=== PATIENT | male | born 1955 | race Caucasian/White ===

== ENCOUNTER 2019-11-29 00:12 | Outpatient (CLI) | payer BC, SELFPAY ==
[2019-11-29 17:37] LABS: SARS-CoV-2 RNA PCR Negative
== END 2019-11-29 00:13 | disposition home or self-care (01) ==
LOC: ANHCOVIDDT 00:13
PROVIDERS: PCP Family Medicine; Visit Provider Internal Medicine Gastroenterology
DX: Z01.812 Encounter for preprocedural laboratory examination (principal); Z20.828 Contact with and (suspected) exposure to other viral communicable diseases
CPT/HCPCS: 87635; C9803; U0003

== ENCOUNTER 2019-12-02 00:58 | Day surgery (SDC) | payer BC, SELFPAY ==
[2019-11-25 14:41] VITALS: BMI 31.6
[2019-12-02 06:36] VITALS: BP 144/85; PULSE 73; RESP 22; TEMP 36.3; O2SAT 98
[2019-12-02] MEDS: LACTATED RINGERS 1,000 ML 150 ML IV CONT (06:44)
--- NOTE | 2019-12-02 06:54 | WPDANESEPPF ---
Anes - Initial Pre Proc Eval Procedure: Operation Date: 12/02/19 07:30 Proposed Procedures p Esophagogastroduodenoscopy - Carlos Garcia MD Date/Time: 12/02/19 06:54 Surgeon: Carlos Garcia MD Pre Op Diagnosis: Dysphagia and GERD Patient Data Age: 64 Gender: M Height: 5 ft 11 in Weight: 103 kg Last Vital Signs Temp 36.3 C L 12/02/19 06:36 Pulse 73 12/02/19 06:36 Resp 22 H 12/02/19 06:36 BP 144/85 H 12/02/19 06:36 Pulse Ox 98 12/02/19 06:36 Allergies Allergy/AdvReac Type Severity Reaction Status Date / Time ibuprofen Allergy Severe HIVES Verified 12/02/19 06:30 KARLOS Inhibitors Allergy Unknown Hives Verified 12/02/19 06:30 Home Medications Medication Instructions Recorded Confirmed Type cetirizine 5 mg-pseudoephedrine ER 1 tablet PO Q12H 12/13/18 11/25/19 History 120 mg tablet,extended release,12hr escitalopram oxalate 20 mg tablet 20 mg PO DAILY #30 tablet 12/13/18 11/25/19 Rx omeprazole 40 mg capsule,delayed 40 mg PO QAM #30 cap 09/05/19 11/25/19 Rx release amlodipine 5 mg tablet 5 mg PO DAILY #30 tablet 11/19/19 11/25/19 Rx atorvastatin 40 mg tablet 40 mg PO DAILY #90 tablet 11/25/19 11/25/19 Rx clindamycin phosphate 1 applic TOPICAL DAILY 11/25/19 11/25/19 History clobetasol See Rx Instructions .ROUTE 11/25/19 11/25/19 History .COMPLEX PRN doxycycline monohydrate 40 mg PO DAILY PRN 11/25/19 11/25/19 History montelukast 10 mg PO DAILY PRN 11/25/19 11/25/19 History olmesartan 40 mg PO DAILY 11/25/19 11/25/19 History zolpidem 10 mg tablet 10 mg PO .qhs #30 tablet 11/25/19 11/25/19 Rx Patient hx anesthesia problems: none Family hx anesthesia problems: none PMFSH Past Medical History Medical History (Updated 10/29/19 @ 13:48 by Carlos Garcia MD) Dysphagia Surgical History Surgical History History of cervical spinal surgery History of meniscectomy of left knee S/P rotator cuff repair bilateral Status post carpal tunnel release Ulnar nerve entrapment at elbow Family History Family History Father Hypertension Family history of cardiovascular disease Mother Hypertension Sibling Family history of cardiovascular disease Family history of malignant neoplasm of breast in first degree relative Social History Social History Smoking status: Never smoker Second hand tobacco smoke exposure: No Alcohol intake: current Drinks per week: 2 Alcohol use details: BEERS Substance use: never Substance use type: does not use Living arrangements: with family Gender identity (if verbalized by the patient): Male Spiritual care concerns: No Anes - Eval Final PreProcedure Day of Procedure 12/02/19 06:54 Patient weight: obese Heart: regular rate and rhythm Lungs: clear to auscultation Airway: Mallampati scale class II and special considerations poor extension Neurological: alert and oriented Last oral intake: >/= 8 hours ASA classification: III Emergent: no Anesthetic plan: proceed Anesthesia type and monitoring: general GIVS and standard monitoring Informed Consent: The patient's anesthetic plan and its attendant risks and benefits were discussed with the patient/family/POA. Questions were solicited and answers provided to the satisfaction of the patient/family/POA.
[2019-12-02 07:03] VITALS: BMI 31.1
--- NOTE | 2019-12-02 07:51 | PM.HPGS ---
History of Present Illness History of Present Illness Consent: Risks, benefits, and alternatives have been discussed and questions answered. Patient agrees to proceed with procedure. Chief complaint: Dysphagia and GERD Narrative: Devaughn Simmons is a 64 year old male with gerd and dysphagia Review of Systems Constitutional: Constitutional: Denies headache(s) and Denies weakness Eyes: Eyes: Denies blurry vision ENT: Reports Normal hearing present, Denies headache(s) and Denies neck pain Cardiovascular: Cardiovascular: Denies chest pain and Denies dyspnea Respiratory: Respiratory: Denies dyspnea Gastrointestinal: Gastrointestinal: Reports no additional gastrointestinal complaints Genitourinary: Genitourinary: Denies dysuria Musculoskeletal: Musculoskeletal: Denies neck pain Integumentary/Breasts: Skin/Breast: Denies dry skin Neurologic: Reports Normal hearing present, Denies headache(s) and Denies weakness Psychiatric: Psychiatric: Denies anxiety Endocrine: Endocrine: Denies change in body appearance Hematologic/Lymphatic: Hematologic/Lymphatic: Denies easy bleeding Allergic/Immunologic: Allergic/Immunologic: Denies urticaria [facility] Past Medical History Medical History (Updated 10/29/19 @ 13:48 by Carlos Garcia MD) Dysphagia Surgical History Surgical History History of cervical spinal surgery History of meniscectomy of left knee S/P rotator cuff repair bilateral Status post carpal tunnel release Ulnar nerve entrapment at elbow Family History Family History Father Hypertension Family history of cardiovascular disease Mother Hypertension Sibling Family history of cardiovascular disease Family history of malignant neoplasm of breast in first degree relative Social History Social History Smoking status: Never smoker Second hand tobacco smoke exposure: No Alcohol intake: current Drinks per week: 2 Alcohol use details: BEERS Substance use: never Substance use type: does not use Living arrangements: with family Gender identity (if verbalized by the patient): Male Spiritual care concerns: No Meds Home Medications and Allergies Home Medications Medication Instructions Recorded Confirmed Type cetirizine 5 mg-pseudoephedrine ER 1 tablet PO Q12H 12/13/18 11/25/19 History 120 mg tablet,extended release,12hr escitalopram oxalate 20 mg tablet 20 mg PO DAILY #30 tablet 12/13/18 11/25/19 Rx omeprazole 40 mg capsule,delayed 40 mg PO QAM #30 cap 09/05/19 11/25/19 Rx release amlodipine 5 mg tablet 5 mg PO DAILY #30 tablet 11/19/19 11/25/19 Rx atorvastatin 40 mg tablet 40 mg PO DAILY #90 tablet 11/25/19 11/25/19 Rx clindamycin phosphate 1 applic TOPICAL DAILY 11/25/19 11/25/19 History clobetasol See Rx Instructions .ROUTE 11/25/19 11/25/19 History .COMPLEX PRN doxycycline monohydrate 40 mg PO DAILY PRN 11/25/19 11/25/19 History montelukast 10 mg PO DAILY PRN 11/25/19 11/25/19 History olmesartan 40 mg PO DAILY 11/25/19 11/25/19 History zolpidem 10 mg tablet 10 mg PO .qhs #30 tablet 11/25/19 11/25/19 Rx Allergies Allergy/AdvReac Type Severity Reaction Status Date / Time ibuprofen Allergy Severe HIVES Verified 12/02/19 06:30 KARLOS Inhibitors Allergy Unknown Hives Verified 12/02/19 06:30 Vital Signs Vital Signs - 24 hr 12/02/19 06:36 Temperature 97.4 F L Pulse Rate 73 Respiratory Rate 22 H Blood Pressure 144/85 H Pulse Oximetry 98 Exam Const: General: comfortable and no acute distress HENMT: General nose exam: Normal nares present Eyes: General: appearance normal, both eyes and all related structures Neck: Neck: no JVD Resp: Auscultation: clear to auscultation bilaterally Cardio: Rate: regular rate Rhythm: regular rhythm GI: Inspection: non-distended GI Palp: Yes
[2019-12-02 08:00] VITALS: BP 123/90; PULSE 63; RESP 13; O2SAT 94
[2019-12-02 08:10] VITALS: BP 131/91; PULSE 63; RESP 13; O2SAT 98
[2019-12-02 08:20] VITALS: BP 132/85; PULSE 62; RESP 18; O2SAT 97
== END 2019-12-02 08:36 | disposition home or self-care (01) ==
PROVIDERS: PCP Family Medicine; Visit Provider Internal Medicine Gastroenterology
PROC: 0DJ08ZZ Inspection of Upper Intestinal Tract, Via Natural or Artificial Opening Endoscopic (ICD-10-PCS; CPT 43235; principal; 2019-12-02 07:30)
DX: K22.2 Esophageal obstruction (principal); K44.9 Diaphragmatic hernia without obstruction or gangrene; K29.70 Gastritis, unspecified, without bleeding; K21.9 Gastro-esophageal reflux disease without esophagitis; E66.9 Obesity, unspecified; Z68.31 Body mass index [BMI] 31.0-31.9, adult
CPT/HCPCS: 43249; 43239; 88305; C1726; J2704; J7120

== ENCOUNTER 2019-12-12 12:36 | Outpatient (NON) | payer BC, SELFPAY ==
[2019-12-12 22:06] LABS: SARS-CoV-2 RNA PCR Negative
== END 2019-12-12 12:37 ==
LOC: ANHCOVIDDT 12:37
PROVIDERS: PCP Family Medicine; Visit Provider Family Medicine
DX: Z20.828 Contact with and (suspected) exposure to other viral communicable diseases (principal); R43.2 Parageusia; R52 Pain, unspecified
CPT/HCPCS: 87635; C9803; U0003

== ENCOUNTER 2020-02-19 08:31 | Outpatient (CLI) | payer BC, SELFPAY ==
--- NOTE | ~2020-02-19 | XR_ITS ---
XR hand RT min 3V DATE: 02/19/2020 09:45 INDICATION: Right hand pain. Osteoarthritis. No injury. TECHNIQUE: 3 views of right hand COMPARISON: None FINDINGS: There is joint space narrowing and spurring at the first and second metacarpophalangeal clementina nts and multiple interphalangeal joints, consistent with osteoarthritis. No fracture or dislocation, periosteal reaction or bone destruction. IMPRESSION: Polyarticular osteoarthritis Reviewed, dictated and finalized at location B. BLADDER MAKER
--- NOTE | 2020-02-19 12:00 | NEURO_ITS ---
Impression: # Complains of pain and numbness of right hand. # Right Carpal Tunnel Syndrome. # Right ulnar neuropathy across the elbow. # Normal needle/EMG exam. # Clinical correlation recommended. Nerve Conduction Studies Anti Sensory Summary Table Stim Site NR Peak (ms) P-T Amp (?V) Site1 Site2 Delta-P (ms) Dist (cm) Kenneth (m/s) Right Median Anti Sensory (2-3nd Digit) Wrist 3.9 19.9 Wrist 2-3nd Digit 3.9 14.0 36 Wrist 3.7 17.6 Wrist 2-3nd Digit 3.9 14.0 36 Right Radial Anti Sensory (Base 1st Digit) Wrist 2.8 14.3 Wrist Base 1st Digit 2.8 0.0 Right Ulnar Anti Sensory (5th Digit) Wrist 2.9 32.1 Wrist 5th Digit 2.9 14.0 48 Motor Summary Table Stim Site NR Onset (ms) O-P Amp (mV) Site1 Site2 Delta-0 (ms) Dist (cm) Kenneth (m/s) Right Median Motor (Abd Poll Brev) Wrist 3.7 4.3 Elbow Wrist 5.8 32.0 55 Elbow 9.5 4.0 Right Ulnar Motor (Abd Dig Minimi) Wrist 2.7 6.2 A Elbow Wrist 6.1 31.0 51 A Elbow 8.8 4.6 B Elbow Wrist 3.9 23.0 59 B Elbow 6.6 4.5 F Wave Studies NR F-Lat (ms) L-R F-Lat (ms) Right Median (Mrkrs) (Abd Poll Brev) 30.92 Right Ulnar (Mrkrs) (Abd Dig Min) 31.33 EMG Side Muscle Nerve Root Ins Act Fibs Amp Dur Recrt Comment Right 1stDorInt Ulnar C8-T1 Nml Nml Nml Nml Nml Right Ext Indicis Radial (Post Int) C7-8 Nml Nml Nml Nml Nml Right Ext Digitorum Radial (Post Int) C7-8 Nml Nml Nml Nml Nml Right BrachioRad Radial C5-6 Nml Nml Nml Nml Nml Right PronatorTeres Median C6-7 Nml Nml Nml Nml Nml Right Abd Poll Brev Median C8-T1 Nml Nml Nml Nml Nml Right ABD Dig Min Ulnar C8-T1 Nml Nml Nml Nml Nml MTDD
== END 2020-02-19 08:32 | disposition home or self-care (01) ==
LOC: ANHNEURO 08:36
PROVIDERS: PCP Family Medicine; Visit Provider Plastic Surgery
DX: R53.1 Weakness (principal); R25.2 Cramp and spasm; G56.01 Carpal tunnel syndrome, right upper limb; G56.21 Lesion of ulnar nerve, right upper limb; M19.041 Primary osteoarthritis, right hand
CPT/HCPCS: 73130; 95886; 95909

== ENCOUNTER → 2020-03-20 01:03 | Outpatient (CLI) | payer BC, SELFPAY ==
[2020-03-21 00:21] LABS: SARS-CoV-2 RNA PCR Negative
== END ==
PROVIDERS: PCP Family Medicine; Visit Provider Plastic Surgery
DX: Z01.812 Encounter for preprocedural laboratory examination (principal); Z20.822 Contact with and (suspected) exposure to COVID-19
CPT/HCPCS: C9803; U0003; U0005

== ENCOUNTER 2020-03-24 00:23 | Day surgery (SDC) | payer BC, SELFPAY ==
[2020-03-16 14:51] VITALS: BMI 31.8
--- NOTE | 2020-03-23 12:20 | WPDANESEPPF ---
Anes - Initial Pre Proc Eval Procedure: Operation Date: 03/24/20 07:30 Proposed Procedures p Right Open Carpal Tunnel Release - Devaughn Decker MD s Right Ulnar Neuroplasty - Devaughn Decker MD Date/Time: 03/23/20 12:20 Surgeon: Devaughn Decker MD Pre Op Diagnosis: Right Carpal Tunnel Syndrome, Right Cubital Tunnel Patient Data Age: 65 Gender: M Height: 1.8 m Weight: 103.63 kg Allergies Allergy/AdvReac Type Severity Reaction Status Date / Time KARLOS Inhibitors Allergy Severe Hives Verified 03/24/20 06:32 ibuprofen Allergy Severe HIVES Verified 03/16/20 14:46 Home Medications Medication Instructions Recorded Confirmed Type cetirizine 5 mg-pseudoephedrine ER 1 tablet PO Q12H 12/13/18 03/24/20 History 120 mg tablet,extended release,12hr amlodipine 5 mg tablet 5 mg PO DAILY #30 tablet 11/19/19 03/24/20 Rx clobetasol See Rx Instructions .ROUTE 11/25/19 03/24/20 History .COMPLEX PRN doxycycline monohydrate 40 mg PO DAILY PRN 11/25/19 03/16/20 History montelukast 10 mg PO DAILY PRN 11/25/19 03/24/20 History olmesartan 40 mg PO HS 11/25/19 03/24/20 History escitalopram oxalate 20 mg tablet 20 mg PO DAILY #90 tablet 12/22/19 03/24/20 Rx omeprazole 40 mg capsule,delayed 40 mg PO QAM #30 cap 02/04/20 03/24/20 Rx release atorvastatin 40 mg PO HS 03/16/20 03/24/20 History naproxen sodium [Aleve] 220 mg PO Q8H PRN 03/16/20 03/24/20 History zolpidem 10 mg HS 03/16/20 03/24/20 History Patient hx anesthesia problems: none Family hx anesthesia problems: none PMFSH Past Medical History Medical History (Updated 03/23/20 @ 12:21 by Jeremy Lutz MD) Chronic GERD Dysphagia Essential (primary) hypertension JAIME (generalized anxiety disorder) Hiatal hernia HLD (hyperlipidemia) Major depressive disorder, recurrent episode, moderate Mild cognitive impairment Surgical History Surgical History (Updated 12/02/19 @ 09:36 by ARIA Fitzpatrick) History of cervical spinal surgery History of meniscectomy of left knee S/P rotator cuff repair bilateral Status post carpal tunnel release Ulnar nerve entrapment at elbow Family History Family History Father Hypertension Family history of cardiovascular disease Mother Hypertension Sibling Family history of cardiovascular disease Family history of malignant neoplasm of breast in first degree relative Social History Social History Smoking status: Never smoker Second hand tobacco smoke exposure: No Additional smoking assessment comments: DENEIS ALL FORMS OF TOBACCO USE Alcohol intake: current Drinks per week: 2 Substance use: never Substance use type: does not use Living arrangements: with family Gender identity (if verbalized by the patient): Male Spiritual care concerns: No Anes - Eval Final PreProcedure Day of Procedure 03/23/20 12:20 Patient weight: obese Heart: regular rate and rhythm Lungs: clear to auscultation and normal air movement Airway: Mallampati scale class II Neurological: alert and oriented Last oral intake: >/= 8 hours ASA classification: III Emergent: no Anesthetic plan: proceed Anesthesia type and monitoring: general GIVS and LMA Informed Consent: The patient's anesthetic plan and its attendant risks and benefits were discussed with the patient/family/POA. Questions were solicited and answers provided to the satisfaction of the patient/family/POA.
[2020-03-24 06:22] VITALS: BP 138/85; PULSE 77; RESP 20; TEMP 37; O2SAT 97
[2020-03-24] MEDS: LACTATED RINGERS 1,000 ML 30 ML IV CONT (06:40)
--- NOTE | 2020-03-24 07:09 | WPDHPUPDATE1 ---
History and Physical Update Update Date/Time: 03/24/20 07:09 History and Physical has been reviewed, including an updated exam of the patient. There are NO changes in the patient's condition. Risks, benefits, and alternatives have been discussed and questions answered. Patient agrees to proceed with procedure.
[2020-03-24] MEDS: LIDO 1%/EPINEPHRINE 1:100,000 50 ML VIAL INFILTRATE (07:29)
--- NOTE | 2020-03-24 08:03 | PM.OP ---
Procedure Note - Brief Procedure Note - Brief Date of procedure: 03/24/20 Pre-op diagnosis: Right Carpal Tunnel Syndrome, Right Cubital Tunnel Post-op diagnosis: same Procedure performed: R OCTR and R ulnar neuroplasty at the elbow Anesthesia: MAC Surgeon: Devaughn Decker MD Rating Examiner: Becky Estimated blood loss (mL): 2 Tourniquet time (min): 31 Drains: No Packing: No Pathology: none sent Complications: No immediate complications Condition: stable Disposition: same day
[2020-03-24 08:11] VITALS: BP 125/78; PULSE 72; RESP 14; O2SAT 94
--- NOTE | 2020-03-24 08:11 | PM.PROC ---
Procedure Note - Detailed Date of procedure: 03/24/20 Pre-op diagnosis: Right Carpal Tunnel Syndrome, Right Cubital Tunnel Post-op diagnosis: same Procedure performed: Right open carpal tunnel release and right ulnar neuroplasty at the elbow Description of procedure: The right cubital tunnel and right carpal tunnel were marked on the patient in the holding area. He was rolled to the operating room where he was placed supine on the operating table. A time-out was held and confirmed. He was given IV sedation as the right upper extremity was prepped and draped in usual fashion. The markings were made or confirmed and each site and these were locally infiltrated with 1% lidocaine with epinephrine. The tourniquet was inflated to 250 mmHg. Surgery was begun on the carpal tunnel. The incision was made as marked and the dissection was carried bluntly through the subcutaneous tissue and scar from previous surgery. The fascial structures were incised with a 15. Blade and the median nerve was identified. The carpal ligament was divided distally and proximally for complete release it appeared that there may have been tangirnaq ligament proximally that perhaps may have been the source of his current problem. No unusual anatomy was noted. That wound was closed with interrupted 4-0 nylon suture. Attention was turned to the elbow which was flexed and supported on folded towels. The incision was made as marked and dissection was carried through the subcutaneous tissue the past several bridging vascular structures that were generally cauterized a few were preserved. The interval between the medial epicondyle and olecranon with was identified proximal to the medial epicondyle. The tissue over the ulnar nerve was opened and the nerve was visualized. The lysis of this tissue was continued distally and proximally. The primary site of compression appeared to be Rai ligament. The opening was extended about 3 cm into the flexor muscle fascia. The nerve did not sublux. The bleeding points were electrocoagulated the wound was closed with interrupted 3-0 Monocryl sutures at cross hatching dennis. The skin closed with running intradermal 3-0 Monocryl. The usual bandages were applied. He is being discharged home with instructions in wound care and follow-up in a prescription for hydrocodone [id number] [id number]. Surgeon: Devaughn Decker MD
[2020-03-24 08:40] VITALS: BP 130/75; PULSE 68; RESP 16
--- NOTE | 2020-03-24 09:20 | SUR.PHASEII ---
0900; PT AWAKE AND ALERT. DENIES PAIN OR NAUSEA. STATES READY TO GO HOME
== END 2020-03-24 09:30 | disposition home or self-care (01) ==
PROVIDERS: PCP Family Medicine; Visit Provider Plastic Surgery
PROC: (CPT 64721; principal; 2020-03-24 07:30)
PROC: (CPT 64721; 2020-03-24 07:30)
DX: G56.01 Carpal tunnel syndrome, right upper limb (principal); G56.21 Lesion of ulnar nerve, right upper limb; I10 Essential (primary) hypertension; E78.5 Hyperlipidemia, unspecified; K21.9 Gastro-esophageal reflux disease without esophagitis; F41.1 Generalized anxiety disorder; F33.1 Major depressive disorder, recurrent, moderate; G31.84 Mild cognitive impairment of uncertain or unknown etiology; E66.9 Obesity, unspecified; Z68.29 Body mass index [BMI] 29.0-29.9, adult
CPT/HCPCS: 64721; 64718; A9270; J2704; J3010; J7120

== ENCOUNTER 2020-04-15 08:24 | Outpatient (CLI) | payer BC, SELFPAY ==
--- NOTE | 2020-04-15 | ECG_ITS ---
Measurements Intervals [place] Rate: 86 P: 56 [place]: 173 QRS: 29 QRSD: 93 T: 66 QT: 356 QTc: 426 Interpretive Statements SINUS RHYTHM BASELINE WANDER- I, III, V4 NORMAL ECG Electronically Signed On 04-15-2020 9:09:14 SOCIAL SECURITY SPECIALIST by Maverick Oneal D.O.
== END 2020-04-15 08:25 | disposition home or self-care (01) ==
PROVIDERS: PCP Family Medicine; Visit Provider Orthopaedic Surgery
DX: Z01.818 Encounter for other preprocedural examination (principal)
CPT/HCPCS: 93005

== ENCOUNTER 2021-04-01 13:35 | Outpatient (CLI) | payer BC, SELFPAY ==
--- NOTE | ~2021-04-01 | US_ITS ---
EXAMINATION: US renal BI EXAM DATE: 04/01/2021 14:10 INDICATION: N28.1 - Cyst of kidney, acquired TECHNIQUE: Multiple grayscale and Doppler images of the kidneys were obtained (by a technologist who performed the scan) and subsequently reviewed. Comparison is made to prior examination from 02/20/2016. FINDINGS: Right kidney: There is normal contour and echogenicity. It measures 10.5 x 6.0 x 5.8 centimeters. T here are no focal renal lesions identified. There is no hydronephrosis. Left kidney: There is normal contour and echogenicity. It measures 12.4 x 5.9 x 6.1 centimeters. The re is a cyst measuring 2 cm. There is no hydronephrosis. Soft tissues at the bladder base contiguous with the prostate, probably prostate bulging within. IMPRESSION: 1. Left renal cyst. 2. Prostatomegaly. Reviewed, dictated and finalized at location G. ERTY ECONOMIST
== END 2021-04-01 13:36 | disposition home or self-care (01) ==
LOC: ANHIMG 13:38
PROVIDERS: PCP Family Medicine; Visit Provider Physician Assistant
DX: N28.1 Cyst of kidney, acquired (principal); N40.0 Benign prostatic hyperplasia without lower urinary tract symptoms
CPT/HCPCS: 76775

== ENCOUNTER → 2021-07-02 11:11 | Outpatient (CLI) | payer BC, SELFPAY ==
--- NOTE | ~2021-07-02 | XR_ITS ---
EXAMINATION: XR chest 2V DATE: 07/02/2021 11:26 INDICATION: Cough TECHNIQUE: PA and lateral views of the chest were obtained. COMPARISON: Chest radiograph dated 12/24/2018 FINDINGS: Visualized lungs are clear. No focal airspace opacities, pulmonary edema, pleural effusion or pneumot horax. Cardiomediastinal silhouette is normal. Moderate thoracic spondylosis with chronic minimal ant erior wedging of a couple mid thoracic vertebral bodies. IMPRESSION: 1. No acute cardiopulmonary disease. Reviewed, dictated and finalized at location A.
== END ==
PROVIDERS: PCP Family Medicine; Visit Provider Physician Assistant
DX: R05.9 Cough, unspecified (principal)
CPT/HCPCS: 71046

== ENCOUNTER 2021-12-30 08:31 | Outpatient (CLI) | payer BC, SELFPAY ==
--- NOTE | 2021-12-30 08:15 | ECG_ITS ---
Measurements Intervals [place] Rate: 75 P: 48 [place]: 182 QRS: 6 QRSD: 88 T: 50 QT: 341 QTc: 382 Interpretive Statements SINUS RHYTHM BASELINE ARTIFACT- I, II, III, AVR, AVL, AVF NORMAL ECG COMPARED TO ECG 04/15/2020 08:52:01 NO SIGNIFICANT CHANGES Electronically Signed On 12-30-2021 12:23:11 RESEARCH SCHOLAR by Maverick Oneal D.O.
== END 2021-12-30 08:32 | disposition home or self-care (01) ==
LOC: ANHSURGERY 08:35
PROVIDERS: PCP Family Medicine; Visit Provider Surgery
DX: I10 Essential (primary) hypertension (principal); Z01.818 Encounter for other preprocedural examination
CPT/HCPCS: 93005

== ENCOUNTER 2022-01-03 01:29 | Day surgery (SDC) | payer BC, SELFPAY ==
--- NOTE | 2021-12-29 13:27 | PC.NURSE ---
PRE-OP INSTRUCTIONS, PLEASE READ CAREFULLY Report to the Outpatient Waiting Room, entrance under the green pavilion located off [facility], at time _0800_ on date _01/03/22_. Planned Procedure Time: _1000_. Time changes happen often and if your time is changed the preop area will call you the afternoon before. - You and your visitor will be asked to self-screen and do not enter if you have any COVID symptoms. - Only one visitor is requested with a max of two and NO children visitors are allowed at this time. - The patient visitor may be requested to leave or wait in car when not with patient due to distancing restrictions. - A mask is optional within the hospital. Patients may have clear liquids (water, carbonated beverages, clear teas, apple juice) until 3 hours prior to surgery (0700 AM) with a maximum of 20 ounces. - No food from midnight until time of surgery Take the following medications with a SIP of water the morning of surgery: _ESCITALOPRAM_ Medications to discontinue - _NAPROXEN PER DR. RODNEY'S INSTRUCTIONS_ Please no make-up, nail amharic, hairspray, perfume, deodorant, or body powder the day of surgery. No jewelry (including any body piercings) or valuables the day of surgery, leave them at home. Please take a shower or bath the night before, or the morning of, surgery with an antibacterial soap. Wear comfortable, loose fitting clothing. - Jewelry must be removed prior to entering the operating room. Rings and piercings that are not removed may be cut off. - The hospital will not accept responsibility for valuables. - Please leave all valuables, including medications, at home the day of surgery. If you are going home after surgery, a licensed set key driver must drive you home. - NO public transportation without another adult if you receive anesthesia. - We recommend that an adult stay with you for 24 hours following discharge. - We also recommend that you do not drive, make important decision, drink alcoholic beverages, or take any drugs that were not prescribed by your health care provider for at least 24 hours after your discharge time. Follow any additional instructions given to you from your surgeon. HIBICLENS SHOWER AM OF SURGERY If you or anyone in your household have experienced Covid symptoms in the past week, please notify your surgeon or the nurse liaison at the phone number below for possible testing. Telephone instructions given to ___PT and asked if any additional questions and then verbalized understanding. Patient advised to call surgeon office or pre surgery nurse liaison [phone] if any additional questions.
[2022-01-03] VITALS (7 sets, daily range): BP systolic 123–135; BP diastolic 77–86; PULSE 56–84; RESP 12–20; TEMP 36.2–36.3; O2SAT 94–100
[2022-01-03] MEDS: ACETAMINOPHEN 500 MG TABLET 1000 MG PO (08:16)
--- NOTE | 2022-01-03 08:32 | WPDANESEPPF ---
Anes - Initial Pre Proc Eval Procedure: Operation Date: 01/03/22 10:00 Proposed Procedures p Ventral Hernia Repair, Possible Mesh - Steven Matta DO Date/Time: 01/03/22 08:32 Surgeon: Steven Matta DO Pre Op Diagnosis: ventral hernia Patient Data Age: 66 Gender: M Height: 1.79 m Weight: 97.5 kg Allergies Allergy/AdvReac Type Severity Reaction Status Date / Time KARLOS Inhibitors Allergy Severe Hives Verified 01/03/22 08:13 ibuprofen Allergy Severe HIVES Verified 01/03/22 08:13 Home Medications Medication Instructions Recorded Confirmed Type cetirizine 5 mg-pseudoephedrine ER 1 tablet PO Q12H PRN Congestion 12/13/18 01/03/22 History 120 mg tablet,extended release,12hr (Zyrtec-D) naproxen sodium 220 mg tablet 220 mg PO Q12H PRN Pain 03/16/20 01/03/22 History (Aleve) escitalopram oxalate 20 mg tablet 20 mg PO DAILY #90 tabs 06/17/21 01/03/22 Rx atorvastatin 40 mg tablet 40 mg PO HS #90 tabs 07/25/21 01/03/22 Rx amlodipine 5 mg tablet 5 mg PO DAILY #30 tabs 08/22/21 01/03/22 Rx olmesartan 40 mg tablet 40 mg PO DAILY #90 tabs 10/21/21 01/03/22 Rx omeprazole 40 mg capsule,delayed See Rx Instructions .Route 11/08/21 01/03/22 Rx release .COMPLEX #100 caps fluticasone propionate 50 2 spray intranasal BID PRN 12/29/21 01/03/22 History mcg/actuation nasal Congestion spray,suspension (Flonase Allergy Relief) montelukast 10 mg tablet See Rx Instructions .Route 12/29/21 01/03/22 History .COMPLEX PRN Congestion zolpidem 10 mg tablet 10 mg PO HS #30 tabs 12/30/21 01/03/22 Rx Patient hx anesthesia problems: none Family hx anesthesia problems: none Results Review: All pre-operative results and documents have been reviewed as part of the pre-operative evaluation. [facility] Past Medical History Medical History Chronic GERD Dysphagia Essential (primary) hypertension JAIME (generalized anxiety disorder) Hiatal hernia HLD (hyperlipidemia) Major depressive disorder, recurrent episode, moderate Mild cognitive impairment Surgical History Surgical History History of cervical spinal surgery History of meniscectomy of left knee S/P rotator cuff repair bilateral Status post carpal tunnel release Ulnar nerve entrapment at elbow Family History Family History Father Hypertension Family history of cardiovascular disease Mother Hypertension Sibling Family history of cardiovascular disease Family history of malignant neoplasm of breast in first degree relative Social History Social History Smoking status: Never smoker Second hand tobacco smoke exposure: No Additional smoking assessment comments: DENEIS ALL FORMS OF TOBACCO USE Alcohol intake: current Drinks per week: 2 Alcohol use details: BEERS Substance use: never Substance use type: does not use Living arrangements: with family Gender identity (if verbalized by the patient): Male Spiritual care concerns: No Anes - Eval Final PreProcedure Day of Procedure 01/03/22 08:32 Patient weight: obese Heart: regular rate and rhythm Lungs: clear to auscultation and normal air movement Airway: Mallampati scale class II Neurological: alert and oriented Last oral intake: >/= 8 hours ASA classification: III Emergent: no Anesthetic plan: proceed Anesthesia type and monitoring: general LMA Results Review: All pre-operative results and documents have been reviewed as part of the pre-operative evaluation. Informed Consent: The patient's anesthetic plan and its attendant risks and benefits were discussed with the patient/family/POA. Questions were solicited and answers provided to the satisfaction of the patient/family/POA.
[2022-01-03] MEDS: LACTATED RINGERS 1,000 ML 30 ML IV CONT ×2 (08:38→10:55)
--- NOTE | 2022-01-03 09:44 | WPDHPUPDATE1 ---
History and Physical Update Update Date/Time: 01/03/22 09:44 History and Physical has been reviewed, including an updated exam of the patient. There are NO changes in the patient's condition. Risks, benefits, and alternatives have been discussed and questions answered. Patient agrees to proceed with procedure.
[2022-01-03] MEDS: ceFAZolin 2 GM/D5W 50 ML 2 GM/50 ML BAG IVPB (09:59)
[2022-01-03] MEDS: BUPIVACAINE/EPINEPHRINE 0.25% 50 ML VIAL 30 ML INFILTRATE (10:28)
--- NOTE | 2022-01-03 10:41 | W.PM.PROC2 ---
Procedure Note - Detailed Date of Procedure 01/03/22 Pre-op Diagnosis ventral hernia Post-op Diagnosis Same Procedure Performed Ventral hernia repair Surgeon Steven Matta, DO Anesthesia General and Local (0.25% bupivacaine with epinephrine) Indications This is a 66-year-old man who presented with an abdominal bulge that he noticed about 1 month ago while moving rocks. He was noticing some discomfort with this but the bulge was reducible. He was found to have a ventral hernia superior to his umbilicus on exam. Discussions were made with the patient about treatment options and decision was made to proceed with ventral hernia repair with possible mesh. Findings Ventral hernia repair was performed. The patient was found to have a small ventral hernia about 2-3 cm superior to the umbilicus. There was a hernia sac containing preperitoneal fat that was excised and sent to the lab for pathology. The defect was only about 3 mm wide. Decision was made to repair this primarily using 0 Ethibond [id number] sutures. A total of 2 sutures were placed transversely to approximate the fascia without tension. Description of Procedure Procedure as well as risks, benefits, and alternatives were discussed with the patient. Written consent was obtained and placed in chart prior to procedure. Patient was brought back to surgical suite. He was placed supine on operating table. Time-out was done to confirm patient and procedure. He was then intubated by the anesthesia department. His abdomen was prepped and draped in sterile fashion using chlorhexidine prep. 0.5% bupivacaine with epinephrine was infiltrated locally around the hernia defect. A 4 cm transverse incision was made about 3 cm superior to the umbilicus using a 15 blade scalpel. Electrocautery was used for hemostasis and for dissection through the subcutaneous tissue. The hernia sac was identified and carefully dissected free using electrocautery. The hernia sac was dissected all the way down to the level the fascia and then it was transected flush with the level of the fascia with electrocautery. The hernia defect was then measured. This was only measuring about 3 mm wide. No other hernia defects were identified when carefully examining the surrounding fascia. The decision was made to repair this primarily. 0 Ethibond sgjeyl-lq-armuo sutures were placed transversely to approximate fascia and close the hernia defect. A total of 2 sutures were placed to adequately approximate the fascia without tension. The repair was inspected and appeared secure. 0.5% bupivacaine with epinephrine was infiltrated locally around the fascia and subcutaneous space. Tiffanie's fascia was then reapproximated using 3-0 Vicryl simple interrupted sutures. The skin was then approximated using 4-0 Monocryl running subcuticular suture. Exofin glue was then applied on top. The patient was then awakened from anesthesia, extubated, and transferred to recovery. Estimated Blood Loss 5 Pathology Yes (Hernia sac) Complications No immediate complications Condition Stable Disposition Same day [facility] Billing Surgery - Charge Forward: Surgery Billing
== END 2022-01-03 12:25 | disposition home or self-care (01) ==
PROVIDERS: PCP Family Medicine; Visit Provider Surgery
PROC: 0WQF0ZZ Repair Abdominal Wall, Open Approach (ICD-10-PCS; CPT 49560; principal; 2022-01-03 10:00)
DX: K43.9 Ventral hernia without obstruction or gangrene (principal); K21.9 Gastro-esophageal reflux disease without esophagitis; I10 Essential (primary) hypertension; E78.5 Hyperlipidemia, unspecified; F41.1 Generalized anxiety disorder; F33.1 Major depressive disorder, recurrent, moderate; E66.9 Obesity, unspecified; Z68.30 Body mass index [BMI] 30.0-30.9, adult
CPT/HCPCS: 49560; 88302; A9270; J0690; J1100; J2250; J2405; J2704; J2710; J3010; J7120

== ENCOUNTER → 2022-08-22 15:22 | Outpatient (CLI) | payer BC, SELFPAY ==
--- NOTE | ~2022-08-22 | XR_ITS ---
EXAMINATION: XR chest 2V DATE: 08/22/2022 15:55 INDICATION: Cough, unspecified. TECHNIQUE: Frontal and lateral views of the chest were obtained. COMPARISON: Chest 2 views 07/02/2021 FINDINGS: The chest demonstrates clear lungs without pneumonia, pleural effusion, or pneumothorax. Th e heart size is normal. IMPRESSION: 1. No acute cardiopulmonary disease. Reviewed, dictated and finalized at location E.
== END ==
PROVIDERS: PCP Family Medicine; Visit Provider Family Medicine
DX: R05.9 Cough, unspecified (principal)
CPT/HCPCS: 71046

== ENCOUNTER 2023-03-21 14:21 | Outpatient (CLI) | payer BC, SELFPAY ==
[2023-03-21 15:35] LABS: Influenza A QL RT-PCR Positive (Negative); Influenza B QL RT-PCR Negative (Negative); RSV RNA, RT-PCR Negative (Negative); SARS-CoV-2 RNA PCR Negative (Negative)
== END 2023-03-21 14:22 | disposition home or self-care (01) ==
LOC: ANHLAB 14:22
PROVIDERS: PCP Family Medicine; Visit Provider Physician Assistant
DX: R05.9 Cough, unspecified (principal); R50.9 Fever, unspecified; Z20.822 Contact with and (suspected) exposure to COVID-19
CPT/HCPCS: 87637

== ENCOUNTER 2023-08-25 07:50 | Outpatient (CLI) | payer BC, SELFPAY ==
--- NOTE | ~2023-08-25 | MR_ITS ---
MRI of the right hip Clinical history: Pain and weakness Technique: Coronal T1-weighted, T2-weighted, and proton-density fat-sat images, and axial T1-weighted and proton-density fat-sat images were acquired through the pelvis. Coronal T2-weighted images and c oronal, axial, and sagittal proton-density fat-sat images were acquired through the right hip. Findings: There is no fracture or avascular necrosis of either hip. Bone marrow signals the proximal femora and visualized pelvic bones are unremarkable. There is probable mild to moderate diffuse chond romalacia of the right hip joint, and mild diffuse chondromalacia of the left hip joint. There is min imal spurring is bilateral acetabular margins. No significant joint effusion seen of either hip. No d efinite tear of the right acetabular labrum identified. There is high-grade partial tearing at the origin of the right semimembranosus tendon, with marked th ickening and increased signal of the tendon, as well as surrounding soft tissue edema fluid, which pa rtially extends about the right sciatic nerve. There is mild chronic change of the left tension tendo n origins. No other muscle signal abnormality seen. No other soft tissue mass or fluid collection angel dent. IMPRESSION: High-grade partial tearing of the origin of the right semimembranosus tendon, with surrounding soft t issue edema and fluid, as detailed above. Moderate diffuse chondromalacia of the right hip joint, and mild diffuse chondromalacia of the left h ip joint. Reviewed, dictated and finalized at location . IMPRESSION: High-grade partial tearing of the origin of the right semimembranosus tendon, w ith surrounding soft tissue edema and fluid, as detailed above. Moderate diffuse chondromalacia of the right hip joint, and mild diffuse chondr omalacia of the left hip joint.
== END 2023-08-25 07:51 ==
LOC: MICIMG 07:51
PROVIDERS: PCP Family Medicine; Visit Provider Nurse Practitioner Family
DX: M25.551 Pain in right hip (principal); R93.6 Abnormal findings on diagnostic imaging of limbs
CPT/HCPCS: 73721

== ENCOUNTER 2023-09-17 08:43 | Outpatient (CLI) | payer BC, SELFPAY ==
--- NOTE | ~2023-09-17 | XR_ITS ---
EXAMINATION: XR lg joint inject/asp w image DATE: 09/17/2023 09:33 INDICATION: Right hip arthritis. TECHNIQUE: A time-out was performed to verify the patient's name, date of , and procedure to b e performed. The procedure including the risks, benefits, and alternatives was discussed with the pat ient. Risks discussed included bleeding and infection. The patient understood the risks and agreed to proceed. The skin overlying the right hip joint was prepped and draped in usual sterile fashion. A nesthetic was administered with 1% lidocaine subcutaneously. A 22 G needle was advanced under fluoro scopic guidance into the joint. Subsequently, injectate consisting of 2 mL 0.5% bupivacaine and 1 mL 80 mg/mL Depo-Medrol was instilled. The needle was removed and the entry site was cleaned and dress ed. There were no immediate complications. Fluoroscopy exposure time was 0.1 minutes. The total numb er of images was 1. FINDINGS: Real-time fluoroscopy demonstrates the needle in the right hip joint. Patient's pain prior to procedure:09/21. Patient's pain following the procedure: 09/21. IMPRESSION: 1. Fluoroscopy guided right hip joint injection of local anesthetic and steroid . Reviewed, dictated and finalized at location A.
== END 2023-09-17 08:44 | disposition home or self-care (01) ==
PROVIDERS: PCP Family Medicine; Visit Provider Nurse Practitioner Family
DX: M16.0 Bilateral primary osteoarthritis of hip (principal)
CPT/HCPCS: 20610; 77002; J1010

== ENCOUNTER 2024-02-26 08:47 | Outpatient (CLI) | payer BC, SELFPAY ==
--- NOTE | ~2024-02-26 | XR_ITS ---
EXAMINATION: XR hand RT min 3V DATE: 02/26/2024 09:06 INDICATION: Carpal tunnel syndrome, bilateral upper limbs. TECHNIQUE: 3 views of right hand were obtained. COMPARISON: None. FINDINGS: Alignment is normal. No fracture. There is mild osteoarthritis of first carpometacarpal clementina nt. There is osteoarthritis of all of the metacarpophalangeal joints and interphalangeal joints, aidee re at second metacarpophalangeal joint and second and third distal interphalangeal joints and moderat e at first metacarpophalangeal joint, first interphalangeal joint, and fourth and fifth distal interp halangeal joints. IMPRESSION: 1. Polyarticular osteoarthritis. Reviewed, dictated and finalized at location A. RY DRILL OPERATOR HELPER
--- NOTE | ~2024-02-26 | XR_ITS ---
EXAMINATION: XR hand LT min 3V DATE: 02/26/2024 09:05 INDICATION: Bilateral carpal tunnel syndrome TECHNIQUE: Posteroanterior, oblique and lateral views of the left hand were obtained. COMPARISON: None. FINDINGS: No fracture at either hand or wrist. Severe osteoarthritis at the bilateral second metacarpophalangea l joints in each with likely secondary mild palmar subluxation. Bone alignment is otherwise normal at the bilateral hands and wrists. Additional relatively symmetric polyarticular osteoarthritis, modera te severity at the first metacarpophalangeal joint and multiple interphalangeal joints with distal pr edominance. Mild osteoarthritis at the majority the remaining joints in the bilateral hands and wrist s. There multiple scattered subarticular lucencies associated with many of the joints with moderate t o severe joint space narrowing in the bilateral hands and wrists which likely represent degenerative subchondral cystlike changes. A few of which appear more juxta articular with sclerotic margins and o verhanging edges which suggests possibility of chronic erosions the setting of crystalline arthropath y such as gout. This best appreciated on the ulnar margin of the heads of the right fifth proximal mi ddle phalanges. The atypical predominance of osteoarthritis at the second metacarpophalangeal joints can also be seen secondary to crystalline arthropathies including calcium pyrophosphate deposition (C PPD) disease. IMPRESSION: 1. Moderate to severe polyarticular osteoarthritis at the bilateral hands and wrists as detailed abov e. 2. Suggestion of a few scattered erosions and atypical predominance of osteoarthritis at the second m etacarpophalangeal joints which raises the possibility of superimposed crystalline arthropathy such a s gout or calcium pyrophosphate deposition (CPPD) disease. Reviewed, dictated and finalized at location B. BLASTER IMPRESSION: 1. Moderate to severe polyarticular osteoarthritis at the bilateral hands and w rists as detailed above. 2. Suggestion of a few scattered erosions and atypical predominance of osteoart hritis at the second metacarpophalangeal joints which raises the possibility of superimposed crystalline arthropathy such as gout or calcium pyrophosphate dep osition (CPPD) disease.
== END 2024-02-26 08:48 | disposition home or self-care (01) ==
PROVIDERS: PCP Family Medicine; Visit Provider Plastic Surgery
DX: G56.03 Carpal tunnel syndrome, bilateral upper limbs (principal); M19.041 Primary osteoarthritis, right hand; M19.042 Primary osteoarthritis, left hand; M19.032 Primary osteoarthritis, left wrist; M19.031 Primary osteoarthritis, right wrist
CPT/HCPCS: 73130

== ENCOUNTER 2024-03-13 07:58 | Outpatient (CLI) | payer BC, SELFPAY ==
--- NOTE | ~2024-03-13 | MR_ITS ---
EXAMINATION: MR elbow RT wo con DATE: 03/13/2024 08:33 INDICATION: Strain of muscle at the right elbow post pulling injury with palpable pop presenting with one month of right elbow pain TECHNIQUE: Magnetic resonance imaging (MRI) of the right elbow was performed without intravenous cont rast. Sequences included coronal, axial, and sagittal PD-weighted FS FSE and coronal, axial, and sagi ttal PD-weighted FSE. COMPARISON: Right elbow radiographs dated 02/28/2024 FINDINGS: Osseous/other: Normal alignment. Normal marrow signal with no marrow edema, fracture, osteochondral lesion or abnor mal marrow replacing process. Mild osteoarthritis at the right elbow with partial thickness cartilage loss most prominent at the radial head or lung significant portions involves greater than 50% the ca rtilage thickness and with small focus of underlying subarticular edema-like signal change along the portion of the rim. Additional small subarticular cystlike change along the medial rim of the medial femoral condyle. Tendons: Triceps and brachialis tendons are normal. There is severe tendinopathy and high-grade partial or mor e likely complete tear without significant retraction of the distal biceps brachii tendon. The tear m argins are irregular with residual frayed and lax appearing tendon material remaining attached to the radial tuberosity footplate. Mild tendinopathy of both the common flexor and common extensor tendon wads. There is a tiny partial thickness tear at the lateral epicondylar origin of the common extensor tendon wad. Ligaments: Small enthesophyte at the sublime tubercle insertion of the intact medial collateral ligament complex . The lateral collateral ligament complex is normal. Cubital tunnel: There is medial subluxation of the ulnar nerve at the cubital tunnel with what appears be a millimete r medial sided tear or laxity of the cubital tunnel retinaculum. There is however some scarring in th e overlying subcutaneous tissues this could also represent sequela of a prior cubital tunnel release procedure. Correlate with surgical history. There is defects formation with flattening of the ulnar n erve and cubital tunnel but no significant thickening or abnormal signal to suggest neuropathy. Fluid: Physiologic amount of fluid the elbow joint. There is a small amount of fluid surrounding the torn bi ceps brachii tendon and tracking proximally and distally along the superficial fascia of the distal b rachialis muscle belly and proximal musculature of the flexor compartment of the forearm. IMPRESSION: 1. Severe tendinopathy and high-grade partial or more likely complete tear of the distal biceps brach ii tendon without significant retraction. 2. Mild right elbow osteoarthritis with complete small regions of high-grade chondromalacia at the ra dial head and medial femoral condyle. 3. Mild medial subluxation of the ulnar nerve at the carpal tunnel with either tear or laxity of the medial aspect of the cubital tunnel retinaculum with some overlying scarring which could be related t o prior trauma or cubital tunnel release procedure. Correlate with surgical history. Reviewed, dictated and finalized at location B. MS ADJUSTER CROP IMPRESSION: 1. Severe tendinopathy and high-grade partial or more likely complete tear of t he distal biceps brachii tendon without significant retraction. 2. Mild right elbow osteoarthritis with complete small regions of high-grade ch ondromalacia at the radial head and medial femoral condyle. 3. Mild medial subluxation of the ulnar nerve at the carpal tunnel with either tear or laxity of the medial aspect of the cubital tunnel retinaculum with some overlying scarring which could be related to prior trauma or cubital tunnel re lease procedure. Correlate with surgical history.
== END 2024-03-13 07:59 | disposition home or self-care (01) ==
LOC: MICIMG 07:59
PROVIDERS: PCP Family Medicine; Visit Provider Orthopaedic Surgery
DX: S46.211A Strain of muscle, fascia and tendon of other parts of biceps, right arm, initial encounter (principal); X58.XXXA Exposure to other specified factors, initial encounter; M19.021 Primary osteoarthritis, right elbow
CPT/HCPCS: 73221

== ENCOUNTER 2024-04-30 14:55 | Outpatient (CLI) | payer BC, SELFPAY ==
--- NOTE | ~2024-04-30 | XR_ITS ---
HISTORY: M79.642 - Pain in left hand COMPARISON: 02/26/2024 TECHNIQUE: 3 views of the left hand were performed. FINDINGS: No acute fracture is identified. Gullwing deformity is identified within the proximal interphalangeal joint spaces of the second, thir d, fourth and fifth digits. Narrowing of the distal interphalangeal joint space is also noted, with overhanging edges and joint s pace sclerosis. Severe degenerative disease is identified at the second metacarpal phalangeal joint space, with mild palmar subluxation. Degenerative disease is identified within the first carpometacarpal joint space consistent with osteo arthritis. The carpal arcs are intact. Mild radiocarpal joint space narrowing with sclerosis of the distal radius is present. Periarticular osteopenia is also noted, consistent with osteoarthritis. Proximal soft tissue swelling of the second through fifth digits. No radiopaque foreign body is identified. IMPRESSION: Significant degenerative disease, without acute fracture or dislocation within the left hand, as iris smith above. Reviewed, dictated and finalized at location A. IMPRESSION: Significant degenerative disease, without acute fracture or dislocation within the left hand, as detailed above.
--- OUTSIDE RECORDS SUMMARY | 2024-04-30 16:32 | XMS_ITS | Encounter Summary ---
Author Organization [facility] Address [facility] [facility] [place] [address] Care Team Providers Care Gum Cook Name Role Phone Tonio Abad MD Primary Care Provider [phone] Encounter Details Date Type Department Care Team (Late Contact Info) Description 07/03/2022 Lab Requisition [facility] - DermPath Lab [address] [place] [id number] Diandra Anguiano, PA-C [address] [place] [phone] Dermatitis, unspecified Social History Tobacco Use Types Packs/Day Years Used Date Smoking Tobacco: Never Assessed Sex and Gender Information Value Date Recorded Sex Assigned at Not on file Gender Identity Not on file Sexual Orientation Not on file documented as of this encounter Plan of Treatment Upcoming Encounters Date Type Department Care Team (Late Contact Info) Description 05/21/2024 10:30 AM CDT Office Visit [facility] - Orthopedics [address] [place] [phone] Kade Pitt MD [address] [place] [address] OF ORTHOPEDIC SURGERY [place], [place] [id number] documented as of this encounter Procedures Procedure Name Priority Date/Time Associated Diagnosis Comments DERMATOPATHOLOGY Routine 07/03/2022 12:0 0 AM CDT Dermatitis, unspecified documented in this encounter Results * DERMATOPATHOLOGY (07/03/2022 12:00 AM CDT) Case Report Dermatopathology Report Case: [id number] Authorizing Provider: Diandra Anguiano PA-C Collected: 07/03/2022 12:00 AM Ordering Location: [facility] DermPath Lab Received: 07/04/2022 03:21 PM Pathologist: Kevin Stiles MD Specimens: A) - Skin, left neck superior B) - Skin, left neck inferior 5:49 PM CDT DERMATOPATHOLOGY LABORATORY Final Diagnosis Specimen A. 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 SKIN, left neck inferior: PRURIGO NODULARIS (L28.1) 5:49 PM CDT DERMATOPATHOLOGY LABORATORY Clinical History A-B: Prurigo vs. Folliculitis 5:49 PM CDT DERMATOPATHOLOGY LABORATORY Gross Description Specimen A: Received is one formalin filled container labeled with the patient's name and designated left neck superior. The specimen consists of a shave biopsy measuring [id number]. Jar 0. Specimen B: Received is one formalin filled container labeled with the patient's name and designated left neck inferior. The specimen consists of a shave biopsy measuring [id number]. Jar 0. 5:49 PM CDT DERMATOPATHOLOGY LABORATORY Microscopic Description Specimen A. SKIN, left neck superior: There is a dome-shaped portion of skin with psoriasiform epidermal hyperplasia, compact hyperkeratosis, and fibrosis of the papillary dermis associated with a superficial perivascular lymphohistiocytic infiltrate. A focal erosion is present. Specimen B. SKIN, left neck inferior: There is a dome-shaped portion of skin with psoriasiform epidermal hyperplasia, compact hyperkeratosis, and fibrosis of the papillary dermis associated with a superficial perivascular lymphohistiocytic infiltrate. 5:49 PM CDT DERMATOPATHOLOGY LABORATORY Disclaimer An external and internal positive and negative controls are appropriate for the histochemical, immunohistochemical and immunofluorescence stain(s) in this case (if any), except where stated explicitly. The performance characteristics of the stain(s) cited in this report were developed and its performance characteristic determined by the Dermatopathology Laboratory at [facility], directed by Dr. Clarice Stiles. These tests need not be, and therefore are not, approved by the [place] Food and Drug Administration. The tests are used for clinical purposes. Billing Codes Specimen Charges Stain Charges 05934 [id number] 1 1 3 5:49 PM CDT DERMATOPATHOLOGY LABORATORY Embedded Images 3 5:49 PM CDT DERMATOPATHOLOGY LABORATORY Pathology/Cytology TISSUE SPECIMEN FROM SKIN / Unknown 07/03/2022 07/04/2022 3:21 PM CDT Miscellaneous samples (specimen) TISSUE SPECIMEN FROM SKIN / Unknown 07/03/2022 07/04/2022 3:21 PM CDT Diandra Anguiano PA-C LAB - PATHOLOGY/CYTO LOGY ORDERABLES DERMATOPATHOLOGY LABORATORY [facility] - Department of Dermatology [facility] [address] [place] [address], [address] [phone] documented in this encounter Visit Diagnoses Diagnosis Dermatitis, unspecified documented in this encounter Care Teams Gum Cook Relationship Specialty Start Date End Date Tonio Abad MD [address] [facility] [address] [place] [address] PCP - General Family Medicine 03/19/24 documented as of this encounter
--- OUTSIDE RECORDS SUMMARY | 2024-04-30 16:32 | XMS_ITS | Referral Summary ---
Author Organization [facility] Address [address] [place] [address] Care Team Providers Care Manager Information Name Role Phone Tonio Abad MD Primary Care Provider Allergies Active Allergy Reactions Criticality Noted Date Comments Ibuprofen Hives Medium 10/24/2016 Medications escitalopram (LEXAPRO) 20 mg tablet Take 20 mg by mouth daily. Active multivitamin with iron tablet Take 1 tablet by mouth daily Active zolpidem (AMBIEN) 10 mg tabletIndicatio ns:Sleep-Onset Insomnia Take by mouth nightly as needed for sleep. Active pantoprazole DR (PROTONIX) 40 mg EC tablet Take by mouth daily. Active tretinoin (RETIN-A) 0.025 % cream Apply topically as needed Active budesonide (RHINOCORT AQUA) 32 mcg/actuation nasal spray Administer 2 sprays into each nostril daily. 8.6 g 4 7 Active azelastine (ASTELIN) 137 mcg (0.1 %) nasal spray Administer 2 sprays into each nostril 2 (two) times a day Use in each nostril as directed 30 mL 3 9 Active Additional Information Patient not taking.Reported on 11/18/2020 atorvastatin (LIPITOR) 40 mg tablet Take 40 mg by mouth nightly Active amLODIPine (NORVASC) 5 mg tablet Take 5 mg by mouth nightly Active olmesartan (BENICAR) 40 mg tablet Take 40 mg by mouth nightly Active montelukast (SINGULAIR) 10 mg tablet Take 10 mg by mouth nightly as needed Active cetirizine (ZyrTEC) 10 mg tablet Take 10 mg by mouth nightly Active mupirocin (BACTROBAN) 2 % ointment Apply 1 application topically as needed Active omeprazole (PriLOSEC) 40 mg capsule Take 40 mg by mouth daily Active Active Problems Problem Noted Date Diagnosed Date Arm pain 11/18/2020 Assessment & Plan (11/18/2020 3:56 PM CDT): Mr. Mcgregor has bilateral arm pain and numbness. He has previously undergone bilateral carpal tunnels surgery. He has also undergone C3-C7 decompression and fusion and has auto fusion at C2-3. We will get any EMG/nerve conduction study to help differentiate between cervical radiculopathy and peripheral nerve entrapment. We will call him with the results and recommendations. Status post cervical spinal fusion 12/17/2018 Assessment & Plan (11/19/2019 2:58 PM CDT): Mr. Mcgregor is improved after C3-4 ACDF. He notes some popping in his neck at times. He has no significant arm pain or signs of myelopathy. He is being worked up for recurrent carpal tunnel syndrome which he likely has. His x-rays show no movement on dynamic range of motion at C3-4 and a solid fusion C2-C7. I plan to see him back in one year's time with no new films at that time. Assessment & Plan (05/06/2019 12:59 PM CDT): Mr. Mcgregor is doing extremely well after anterior cervical decompression and fusion with no current complaints. I plan to see him back in six months time with AP and flexion-extension cervical spine films at that time. He will call us in the interim if any problems arise. Assessment & Plan (12/17/2018 12:18 PM SWATCH FOLDER): Mr. Mcgregor is doing very well following surgery is very pleased with his outcome. PLAN: 1. Start physical therapy/aqua therapy/home exercise program 2. After 6 weeks, patient may resume NSAIDs, may increase activity as tolerated. WORK STATUS: 1. RETURNED TO WORK: No restrictions FOLLOW UP APPT: With Dr. Escobar in 4.5 months with Flexion/Extension Cervical spine films. Resolved Problems Problem Noted Date Diagnosed Date Resolved Date Radiculopathy, cervical 09/24/201808/2019 Overview (09/24/2018): Added automatically from request for surgery [id number] Cervical pain (neck) 07/30/2018 020 Assessment & Plan (07/30/2018 10:33 AM CDT): Patient exhibits recurrent symptoms of neck pain with radicular pain in his upper extremities along with difficulty swallowing. Patient questions if his instrumentation is rubbing against his larynx. I would have the patient obtain MRI cervical spine without contrast with attention to soft tissue detail. Should the above findings be negative for any findings, he would benefit from trial of speech therapy with ENT for his swallowing issues and physical therapy for his cervical pain. Immunizations Immunization Administration Dates Next Due Influenza, Quadrivalent, Spl it, Preservative Free, Intramuscular 11/04/2016 Social History Tobacco Use Types Packs/Day Years Used Date Smoking Tobacco: Never Smokeless Tobacco: Never Alcohol Use Standard Drinks/Week Comments Yes 0 (1 standard drink = 0.6 oz pur e alcohol) 3 per week Sex and Gender Information Value Date Recorded Sex Assigned at Not on file Legal Sex Male 2:32 AM SWATCH FOLDER Gender Identity Not on file Sexual Orientation Not on file Last Filed Vital Signs Vital Sign Reading Time Taken Comments Blood Pressure 155/90 02/18/2021 11:10 AM SWATCH FOLDER Pulse 84 02/18/2021 11:10 AM SWATCH FOLDER Temperature 37.4 C (99.4 F) 02/18/2021 9:18 AM SWATCH FOLDER Respiratory Rate 18 02/18/2021 11:10 AM SWATCH FOLDER Oxygen Saturation 95% 02/18/2021 9:18 AM SWATCH FOLDER Inhaled Oxygen Concentration - - Weight 97.5 kg (215 lb) 02/18/2021 9:18 AM SWATCH FOLDER Height 179.1 cm (5' 10.5 ) 02/18/2021 9:18 AM CS T Body Mass Index 30.41 02/18/2021 9:18 AM SWATCH FOLDER Plan of Treatment Not on file Medical Devices Implanted Type Area Gusset Folder Device Identifier Shelf Expiration Date Model / Serial / Lot [employer] 3d Cervical [id number] Deg - Sn/A - [id number] Implanted:Qty: 1 on 11/04/2018 by Nikolay Escobar MD at [facility] N/A: Spine Cervical Core Link [id number] 09/27/2023 [id number] / N/A / [id number] [employer] 700-025 I Factor Allograft Putty Syringe Graft 2.5cc Bone - Sn/A - [id number] Implanted:Qty: 1 on 11/04/2018 by Nikolay Escobar MD at [facility] N/A: Spine Cervical [employer] 06/11/2021 700-025 / N/A / [id number] Core Link Anodyne 16mm Level 1 Spine Cervical Anterior Plate Bone - [id number] Implanted:Qty: 1 on 11/04/2018 by Nikolay Escobar MD at [facility] N/A: Spine Cervical Core Link / / Core Link Anodyne 4mm 14mm Variable Angle Self Tap Spine Cervical Screw - [id number] Implanted:Qty: 4 on 11/04/2018 by Nikolay Escobar MD at [facility] N/A: Spine Cervical Core Link / / Core Link Anodyne 4.5mm 14mm Variable Angle Self Tap Spine Cervical Screw - [id number] Implanted:Qty: 1 on 11/04/2018 by Nikolay Escobar MD at [facility] N/A: Spine Cervical Core Link / / Insurance [facility] [address] [employer] [place] [employer] [place] Advance Directives For more information, please contact: [phone] * Full Code (Latest Code Status on File) Date Activated Date Inactivated Comments 11/04/2018 12:08 PM 11/05/2018 5:11 PM Care Teams Manager Information Relationship Specialty Start Date End Date Tonio Abad MD [address] [facility] [address] [place] [address] PCP - General 12/17/18
--- OUTSIDE RECORDS SUMMARY | 2024-04-30 16:32 | XMS_ITS | Clinical Summary ---
Author Organization [facility] [employer] Address [facility] [place] [address] Care Team Providers Care Equity Analyst Name Role Phone Tonio Abad MD Primary Care Provider [phone] Source Comments [facility] [employer],non-owned Affiliates and Associated Physician Practices is amultiple site organization consisting of ambulatory clinics and hospital sitesin [place], [place], [place] and [place]. This disclosure is being madepursuant to the Care Everywhere program and may not contain all information available regarding this patient. Last updated 17.[facility] [employer] Allergies Active Allergy Reactions Criticality Noted Date Comments Ibuprofen Urticaria Medium 10/24/2016 Medications * Be aware that medications may not be up to date on this document. Alwaysverify current medications with the patient. Medication Sig Dispensed Refills Start Date End Date Status multivitamin with iron (Ultra Solo) capsule Take 1 (one) capsule by mouth once daily Active atorvastatin (Lipitor) 40 MG tablet Take 1 (one) tablet by mouth at bedtime Active cetirizine (ZyrTEC) 10 MG tablet Take 1 (one) tablet by mouth at bedtime Active escitalopram (Lexapro) 20 MG tablet Take 1 (one) tablet by mouth once daily Active montelukast (Singulair) 10 MG tablet Take 1 (one) tablet by mouth once daily as needed Active amLODIPine (Norvasc) 5 MG tablet Take 1 (one) tablet by mouth at bedtime Active olmesartan (Benicar) 40 MG tablet Take 1 (one) tablet by mouth at bedtime Active omeprazole (PriLOSEC) 40 MG capsule Take 1 (one) capsule by mouth once daily Active zolpidem (Ambien) 10 MG tablet Take 1 (one) tablet by mouth nightly as needed for Insomnia Active Dupixent 300 MG/2ML prefilled pen Inject 2 mL subcutaneously every 14 days 02/25/2024 Active clindamycin (Cleocin T) 1 % solution Apply to affected area 2 times daily 04/07/2024 Active meloxicam (Mobic) 15 MG tablet Take 1 (one) tablet by mouth once daily as needed 30 tablet 04/09/2024 Active diclofenac sodium EC (Voltaren) 75 MG tablet Take 1 (one) tablet by mouth 2 times daily 03/25/2024 5 Discontinue d(List Clean-Up) docusate sodium (Colace) 100 MG capsule Take 1 (one) capsule by mouth 2 times daily 15 capsule 04/09/2024 5 Discontinue d(List Clean-Up) gabapentin (Neurontin) 300 MG capsule Take 1 (one) capsule by mouth 3 times daily 21 capsule 04/09/2024 5 Discontinue d(List Clean-Up) HYDROcodone-gil taminophen ([place]) 5-325 MG tabletIndicatio ns:Postoperativ e pain Take 1 (one) tablet by mouth every 6 hours as needed for Pain 28 tablet 04/09/2024 5 Discontinue d(List Clean-Up) methylPREDNISol one (Medrol Dosepak) 4 MG tablet Take by mouth as directed 1 Each 04/09/2024 5 Discontinue d(List Clean-Up) Active Problems Problem Noted Date Diagnosed Date Arm pain 11/18/2020 Status post cervical spinal fusion 12/17/2018 Encounters Date Type Department Care Team Description 04/23/2024 10:11 AM CDT - 04/23/2024 11:59 PM CDT Hospital Encounter [facility] DIAGNOSTIC RAD CSM [address]L [address] [facility] [facility] [place] [phone] Kade Pitt MD Discharge Disposition: Home or Self Care 04/23/2024 9:50 AM CDT [facility] [address] [facility] [place] [phone] Kade Pitt MD H/O elbow surgery (Primary Dx) 04/23/2024 Travel 04/14/2024 Orders Only [facility] [address] [place] [phone] Kade Pitt MD H/O elbow surgery 04/10/2024 11:53 AM COMMISSARY AGENT Anesthesia Event [facility] [address] [place] [phone] Cachorro Mejia MD 04/10/2024 11:45 AM COMMISSARY AGENT - 04/10/2024 1:20 PM COMMISSARY AGENT Surgery [facility] [address] [place] [phone] Kade Pitt MD Right elbow distal biceps repair, RIGHT 04/10/2024 11:30 AM COMMISSARY AGENT Anesthesia Event [facility] [address] [place] [phone] Portia Gaytan APRN-QUALITY CLOTH TESTER 04/10/2024 11:13 AM COMMISSARY AGENT - 04/10/2024 2:40 PM COMMISSARY AGENT Hospital Encounter [facility] [address] [place] [phone] Kade Pitt MD Surgery General Discharge Disposition: Home or Self Care 04/10/2024 10:47 AM COMMISSARY AGENT - 04/10/2024 11:12 AM COMMISSARY AGENT Hospital Encounter [facility] CAT SCAN [address] [place] [phone] Kade Pitt MD Discharge Disposition: Home or Self Care 04/10/2024 9:52 AM COMMISSARY AGENT - 04/10/2024 10:00 AM COMMISSARY AGENT Hospital Encounter [facility] [address] [place] [phone] Kade Pitt MD Surgery General Discharge Disposition: Home or Self Care 04/10/2024 Travel 04/10/2024 Orders Only [facility] [address] [place] [phone] Kade Pitt MD Fall, sequela 03/26/2024 8:30 AM COMMISSARY AGENT Office [facility] [address] [place] [address] [place] [phone] Kade Pitt MD Right elbow pain (Primary Dx) 03/26/2024 Travel 03/19/2024 Travel from Last 3 Months Immunizations Name Administration Dates Next Due INFLUENZA VACCINE, QUADR. (F LUZONE; FLULAVAL; FLUARIX; AFLURIA QUADRIVALENT; 6MO+), 0.5 ML (IIV4) 11/04/2016 Social History Tobacco Use Types Packs/Day Years Used Date Smoking Tobacco: Never Smokeless Tobacco: Never Tobacco Cessation:Counseling Given: Not Answered Alcohol Use Standard Drinks/Week Comments Yes 0 (1 standard drink = 0.6 oz pur e alcohol) PHQ-2 Answer Date Recorded Patient Health Questionnaire-2 Score 0 03/25/2024 Sex and Gender Information Value Date Recorded Sex Assigned at Not on file Gender Identity Not on file Sexual Orientation Not on file Last Filed Vital Signs Vital Sign Reading Time Taken Comments Blood Pressure 141/95 04/10/2024 1:45 PM COMMISSARY AGENT Pulse 87 04/10/2024 1:45 PM COMMISSARY AGENT Temperature 36.8 C (98.2 F) 04/10/2024 11:34 AM COMMISSARY AGENT Respiratory Rate 13 04/10/2024 1:45 PM COMMISSARY AGENT Oxygen Saturation 94% 04/10/2024 2:06 PM COMMISSARY AGENT Inhaled Oxygen Concentration - - Weight 98.9 kg (218 lb) 04/03/2024 3:10 PM COMMISSARY AGENT Height 179.1 cm (5' 10.5 ) 04/03/2024 3:10 PM CS T Body Mass Index 30.84 04/03/2024 3:10 PM COMMISSARY AGENT Plan of Treatment Upcoming Encounters Date Type Department Care Team (Late st Contact Info) Description 05/21/2024 10:30 AM CDT Office Visit [facility] [address] [place] [phone] Kade Pitt MD [address] [place] [address] [place] [address] Health Maintenance Due Date Last Done Comments COLOGUARD (AGES 45-75) - COL ON CA SCREENING 1955 COLON MONITORING 1955 COLONOSCOPY - COLON CA SCREENING 1955 CT COLONOGRAPHY - COLON CA SCREENING 1955 Colorectal Cancer Screening 1955 FIT - COLON CA SCREENING 1955 FLEX SIG - COLON CA SCREENING 1955 HEPATITIS C SCREENING 01/01/1973 DTAP/TDAP/TD VACCINES (1 - Tdap) 1974 PNEUMOCOCCAL VACCINE 50+ (1 of 1 - PCV) 2005 ZOSTER VACCINE (1 of 2) 2005 Respiratory Syncytial Virus (RSV) Vaccine Pt: or over 60 yrs (1 - Risk 60-74 years 1-dose series) 2015 COVID-19 VACCINE (1 - 2023-2 5 season) 2023 INFLUENZA VACCINE (#1) 2023 11/04/2016 SCREENING FOR DIABETES 04/11/2024 DEPRESSION SCREENING Completed 03/26/2024 HEPATITIS B VACCINE Aged Out No longe r eligible based on patient's age to complete this topic HIB VACCINE Aged Out No longer eligi ble based on patient's age to complete this topic HPV VACCINE Aged Out No longer eligi ble based on patient's age to complete this topic MENINGOCOCCAL (Group B) VACC INE SHARED DECISION-MAKING Aged Out No longer eligibl e based on patient's age to complete this topic MENINGOCOCCAL GROUPS A/C/Y/W VACCINE Aged Out No longer eligible b ased on patient's age to complete this topic Medical Devices Implanted Type Area Obstetrics Gyn Device Identifier Shelf Expiration Date Model / Serial / Lot [place] Sut [id number] + Othcrd 2.4mm Ntnl Implanted:Qty: 1 on 04/10/2024 by Kade Pitt MD at [facility] [employer] 07/12/2026 [id number] / / [id number] Procedures Procedure Name Priority Date/Time Associated Diagnosis Comments XR ELBOW RIGHT 2VW Routine 04/23/2024 10 :16 AM CDT H/O elbow surgery ENDOTRACHEAL TUBE NOTE Routine 04/10/2024 12:12 PM COMMISSARY AGENT PERIPHERAL BLOCK Routine 04/10/2024 12:0 5 PM COMMISSARY AGENT NM REINSERT BI/TRICEPS TENDON,DISTAL 04/10/2024 11:48 AM COMMISSARY AGENT Biceps muscle strain, right, initial encounter Special Needs SUPINE, GENERAL W/BLOCK, BEACH CHAIR, TOURNIQUET, [employer] - Ino Siemer CT HEAD WO CONTRAST Routine 04/10/2024 1 0:53 AM COMMISSARY AGENT Fall, sequela NM REINSERT BI/TRICEPS TENDON,DISTAL Biceps muscle strain, right, initial encounter Special Needs SUPINE, GENERAL W/BLOCK, BEACH CHAIR, TOURNIQUET, [employer] - Ino Siemer from Last 3 Months Results * XR Elbow Right 2Vw (04/23/2024 10:16 AM CDT) Anatomical Region Laterality Modality Upper Extremity Computed Radiogr aphy 04/23/2024 11:4 8 AM CDT Impressions 04/23/2024 11:49 AM CDT IMPRESSION: Postsurgical changes with 2 suture anchors at the radial tuberosity. > Interpreting Provider: Ambrose Atkinson MD on 04/23/2024 11:49 AM Narrative 04/23/2024 11:49 AM CDT PROCEDURE: XR ELBOW RIGHT 2VW DATE/TIME OF EXAM: 04/23/2024 10:16 AM CLINICAL INFORMATION: None relevant/not provided if blank. Indication: Z98.890: H/O elbow surgery Additional History: COMPARISON: None. FINDINGS: There are postsurgical changes with 2 anchors in the radial tuberosity. There is no fracture or dislocation. There is mild joint space narrowing medially with mild subchondral sclerosis. There are no erosions. The anterior fat-pad is not elevated, however the posterior fat-pad is visible which could indicate an effusion. Procedure Note Ambrose Atkinson MD - 04/23/2024 PROCEDURE: XR ELBOW RIGHT 2VW DATE/TIME OF EXAM: 04/23/2024 10:16 AM CLINICAL INFORMATION: None relevant/not provided if blank. Indication: Z98.890: H/O elbow surgery Additional History: COMPARISON: None. FINDINGS: There are postsurgical changes with 2 anchors in the radial tuberosity. There is no fracture or dislocation. There is mild joint space narrowing medially with mild subchondral sclerosis. There are no erosions. The anterior fat-pad is not elevated, however the posterior fat-pad isvisible which could indicate an effusion. IMPRESSION: Postsurgical changes with 2 suture anchors at the radial tuberosity. > Interpreting Provider: Ambrose Atkinson MD on 04/23/2024 11:49 AM Kade Pitt MD DIAGNOSTIC IMAGING O RDERABLES * ETT LINE PERFORMABLE (04/10/2024 12:12 PM COMMISSARY AGENT) Narrative Mattie Anand APRN-CRNA - 04/10/2024 12:12 PM COMMISSARY AGENT Mattie Anand APRN-CRNA 04/10/2024 12:13 PM Endotracheal Tube Placement: Intubation Event Date/Time: 04/10/2024 12:01 PM Procedure: intubation ([id number]) Procedure Section: Sedation: under general anesthesia. Indications for Airway Management: anesthesia Induction: standard IV Patient Position: sniffing Mask Ventilation: easy with oral airway. Blade Type: Video Blade Size: 4 Laryngoscopy View: grade 1 (full cords) Intubation Adjuncts: stylet Tube: endotracheal tube Placement: oral Tube type: cuff - inflated Tube Size (MM): 8 Measured From: teeth Cuff volume (mL): 8 Cuff Inflated With: air Number of Attempts: 1. Placement Verified By: direct visualization, bilateral breath sounds, chest auscultation and CO2 monitor Tube secured with: adhesive tape. Dentition unchanged? Yes Difficult Airway? No. Procedure Start Time: 04/10/2024 12:01 PM. Staff Section Anesthesia Provider: Cachorro Mejia MD Provider #1: Mattie Anand APRNOLIVIA. Provider #2: Cody Sagastume Performed the procedure. Cachorro Mejia MD GENERAL ANESTHESIA ORDERABLES * Peripheral Nerve Block (04/10/2024 12:05 PM COMMISSARY AGENT) Narrative Cachorro Mejia MD - 04/10/2024 12:05 PM COMMISSARY AGENT Cachorro Mejia MD 04/10/2024 12:06 PM Peripheral Nerve Block Procedure: Peripheral Nerve Block Patient Location: Pre-op Preprocedure Section: Indications: at surgeon's request, postop pain management and procedure for pain. Pre-anesthetic Checklist: Patient identified, IV Checked, Site examined and clear, Risks and benefits discussed, Surgical consent verified, Monitors and equipment, Time-out performed, Informed consent obtained, Pre-op evaluation done, Questions answered/anesthesia questions answered, Allergies reviewed and Removal hand/wrist jewelry Monitors: BP, Pulse Ox, EKG and ETCO2. Patient Condition: awake Patient Position: sitting Patient Sedated? No Procedure Section Laterality: right Block Performed: interscalene Prep: Chloraprep Strerile Field: gloves, mask, hat/cap, patient draped and sterile ultrasound sleeve Skin localized with: lidocaine (XYLOCAINE) 1 % injection - Infiltration 1 mL - 04/10/2024 11:40:00 AM Needle Type: Echogenic insultaed Needle Gauge: 21 Needle Length: 90 mm Needle Depth: 3 cm Catheter? No Ultrasound Guided? Yes Technique: in plane Visualization: Preliminary scan performed, Important anatomical structures identified, Needle tip visualized throughout the procedure, Target identified, No intraneural or intravascular puncture occurred, Ultrasound image in chart, Local visualized surrounding nerve on ultrasound and Hydrodissection utilized Injection Assessment: Slow fractionated injection Block Agents or Additives used? Yes Block agents used: bupivacaine PF (MARCAINE PF) 0.5 % injection - Infiltration 10 mL - 04/10/2024 11:42:00 AM bupivacaine liposome (EXPAREL) 1.3 % injection - Infiltration 10 mL - 04/10/2024 11:42:00 AM Procedure Tolerance: tolerated well Assessment: completed Procedure Start Time: 04/10/2024 11:40 AM. Procedure End Time: 04/10/2024 11:45 AM. Procedure Total Time: 5 minutes. Staff Section Anesthesia Provider: Cachorro Mejia MD, Performed the procedure Additional Comments: I was personally present for the entire procedure. . Cachorro Mejia MD GENERAL ANESTHESIA ORDERABLES * CT Head Wo Contrast (04/10/2024 10:53 AM COMMISSARY AGENT) Anatomical Region Laterality Modality Head Computed Tomogra phy 04/10/2024 10:5 5 AM COMMISSARY AGENT Impressions 04/10/2024 11:02 AM COMMISSARY AGENT IMPRESSION: 1.No acute intracranial hemorrhage, midline shift, or significant mass effect. > Interpreting Provider: Marla Keller MD on 04/10/2024 11:02 AM Narrative 04/10/2024 11:02 AM COMMISSARY AGENT PROCEDURE: CT HEAD WO CONTRAST, DATE/TIME OF EXAM: 04/10/2024 10:54 AM, LOCATION [facility] INDICATION: W19.XXXS: Fall, sequela EXAMINATION: Computed tomography (CT) of the head without contrast ADDITIONAL CLINICAL INFORMATION: Ordering Provider Reason For Exam: Fall and head trauma eval for subdural Technologist Note: None. Additional: None. TECHNIQUE: CT of the head was performed without contrast according to standard protocol. CT dose reduction technique was used, including Automated Exposure Control. COMPARISON: No prior study is available for comparison at the time of this dictation. FINDINGS: Images are degraded due to motion artifacts. Within this limitation: Accounting for the presence of motion artifact which reduces the sensitivity to detect subtle intracranial hemorrhage, no distinct acute intra- or extra-axial fluid collections are identified. There is subtle hyperdensity along the falx likely due to dural thickening/calcifications. There is mild cerebral volume loss with associated ex vacuo ventricular dilatation. The basilar cisterns are patent. No mass effect or midline shift is seen. The cohen-white matter differentiation is normal. Periventricular white matter hypoattenuation is indicative of chronic small vessel ischemic disease. There is vascular calcification of the carotid siphons. No acute calvarial fracture is identified. Other than bilateral cataract extractions, the orbits appear normal. There is mild paranasal sinus disease. Mild chronic deformity of the nasal septum. There is a small nino bullosa of the right middle turbinate. The mastoid air cells are grossly clear. Subtle hyperdensity of the superior sagittal sinus is a nonspecific finding and possibly related to dehydration or hemoconcentration. No soft tissue abnormality is identified. Artifacts from the dental amalgam limit evaluation of the oral cavity. Procedure Note Marla Keller MD - 04/10/2024 PROCEDURE: CT HEAD WO CONTRAST, DATE/TIME OF EXAM: 04/10/2024 10:54 AM, LOCATION [facility] INDICATION: W19.XXXS: Fall, sequela EXAMINATION: Computed tomography (CT) of the head without contrast ADDITIONAL CLINICAL INFORMATION: Ordering Provider Reason For Exam: Fall and head trauma eval forsubdural Technologist Note: None. Additional: None. TECHNIQUE: CT of the head was performed without contrast according to standard protocol. CT dose reduction technique was used, including Automated Exposure Control. COMPARISON: No prior study is available for comparison at the time ofthis dictation. FINDINGS: Images are degraded due to motion artifacts. Within this limitation: Accounting for the presence of motion artifact which reduces the sensitivity to detect subtle intracranial hemorrhage, no distinct acute intra- or extra-axial fluid collections are identified. There is subtle hyperdensity along the falx likely due to duralthickening/calcifications. There is mild cerebral volume loss with associated ex vacuo ventricular dilatation. The basilar cisterns are patent. No mass effect or midline shift is seen. The cohen-white matter differentiation is normal. Periventricular white matter hypoattenuation is indicative of chronicsmall vessel ischemic disease. There is vascular calcification of the carotid siphons. No acute calvarial fracture is identified. Other than bilateral cataract extractions, the orbits appear normal. There is mild paranasal sinus disease. Mild chronic deformity of the nasal septum. There is asmall nino bullosa of the right middle turbinate. The mastoid air cells are grossly clear. Subtle hyperdensity of the superior sagittal sinus is a nonspecific finding and possibly related to dehydration or hemoconcentration. No soft tissue abnormality is identified. Artifactsfrom the dental amalgam limit evaluation of the oral cavity. IMPRESSION: 1.No acute intracranial hemorrhage, midline shift, or significant mass effect. > Interpreting Provider: Marla Keller MD on 04/10/2024 11:02 AM Kade Pitt MD CT ORDERABLES from Last 3 Months Care Teams Equity Analyst Relationship Specialty Start Date End Date Tonio Abad MD [address] [place] [address] PCP - General Family Medicine 03/19/24
--- OUTSIDE RECORDS SUMMARY | 2024-04-30 16:32 | XMS_ITS | Encounter Summary ---
Author Organization [facility] Healthcare Address [address] [place] [address] Care Team Providers Care Machine Trimmer Name Role Phone Tonio Abad MD Primary Care Provider Encounter Details Date Type Department Care Team (Late st Contact Info) Description 02/17/2021 Telephone [facility] - Interventional Radiology [address] [place] [phone] Jaye Vance RN Social History Tobacco Use Types Packs/Day Years Used Date Smoking Tobacco: Never Smokeless Tobacco: Never Alcohol Use Standard Drinks/Week Comments Yes 0 (1 standard drink = 0.6 oz pur e alcohol) 3 per week Sex and Gender Information Value Date Recorded Sex Assigned at Not on file Legal Sex Male 2:32 AM OFFICE DIRECTOR Gender Identity Not on file Sexual Orientation Not on file documented as of this encounter Plan of Treatment Not on file documented as of this encounter Visit Diagnoses Not on filedocumented in this encounter Care Teams Machine Trimmer Relationship Specialty Start Date End Date Tonio Abad MD [address] [facility] [address] [place] [address] PCP - General 12/17/18 documented as of this encounter
--- OUTSIDE RECORDS SUMMARY | 2024-04-30 16:32 | XMS_ITS | Continuity of Care Document ---
Author Organization [facility] Address [address] [place] [address] Phone Care Team Providers Care Canine Service Instructor Trainer Name Role Phone Niles Lezama MD Unavailable Unavailable Allergies, Adverse Reactions, Alerts Substance Reaction Status Criticality ibuprofen Active No Information Medications Medication Instructions Dosage Effective Dates (start - stop) Status Comments HYDROCODONE-ACETAMIN OPHEN (unknown strength) take 1 tablet by oral route every 4 - 6 hours as needed for pain as needed Not Available - Active OLMESARTAN MEDOXOMIL (unknown strength) take 1 tablet by oral route every day Not Available - Active MONTELUKAST SODIUM (unknown strength) take 1 tablet by oral route every day in the evening as needed Not Available - Active NAPROXEN (unknown strength) take 1 tablet by oral route 2 times every day with food as needed Not Available - Active escitalopram 20 mg tablet take 1 tablet by oral route every day 20 MG - Active cetirizine 10 mg tablet take 1 tablet by oral route every day 10 MG - Active amlodipine 5 mg-valsartan 320 mg tablet take 1 tablet by oral route every day 1.00 tablet - Active atorvastatin 20 mg tablet take 1 tablet by oral route every day 20 MG - Active Procedures Procedure Date OFFICE/OUTPATIENT VISIT, NEW AFTER CATARACT LASER SURGERY OFFICE/OUTPATIENT VISIT, EST POSTOP FOLLOW-UP VISIT AFTER CATARACT LASER SURGERY OFFICE/OUTPATIENT VISIT, EST POSTOP FOLLOW-UP VISIT POSTOP FOLLOW-UP VISIT POSTOP FOLLOW-UP VISIT CATARACT SURG W/IOL, 1 STAGE OFFICE/OUTPATIENT VISIT, EST POSTOP FOLLOW-UP VISIT CATARACT SURG W/IOL, 1 STAGE OFFICE/OUTPATIENT VISIT, NEW OPHTHALMIC BIOMETRY OPHTHALMIC BIOMETRY Advance Directives Directive Yes / No Effective Date File Name No Information Encounters Encounter Description Practice Location Reason(s) For Visit Diagnoses Date Provider Providers Copied on Encounter OFFICE/OUTPA TIENT VISIT, [facility], [id number] [place] [address], [place], [place], [id number], [place] tel:[phone] O[facility] CONS[facility] MARILU CANELA decreased vision (chief complaint) PseudophakiaV isual floaters, bilateral 3 Tejaarmin Cage. [address] [place] [address], [address], [place], [address], [place]. tel:[phone] Referring Provider: Douglas Pierce MD, [address], [place], [address]. tel:[phone] [facility], [address] [place] [address], [place], [place], [id number], [place] tel:[phone] [facility] [place] No Information 7 Teja Cage. [address] [facility], [address], [place], [address], [place]. tel:[phone] Referring Provider: Niles Chaidez, [address] [place] [address] [address], [place], [address]. tel:[phone] OFFICE/OUTPA TIENT VISIT, [facility], [address], [place], [place], [id number], [place] tel:[phone] [facility] CONSULT MARILU CANELA blurred vision (chief complaint) Other secondary cataract, right eyePseudophak iaVisual floaters, bilateral 7 Tejaarmin Cage. [address] [facility], [address], [place], [address], [place]. tel:[phone] Referring Provider: Niles Chaidez, [id number] [place] [address] [address], [place], [address]. tel:[phone] [facility], [address] [place] [address], [place], [place], [id number], [place] tel:[phone] [facility] MARILU CANELA blurry vision OS (chief complaint)bl urry vision (chief complaint) No Information 7 Teja Cage. [address] [place] [address], [address], [place], [address], [place]. tel:[phone] Referring Provider: Niles Chaidez, [address] [place] [address] [address], [place], [address]. tel:[phone] [facility], [address] [place] [address], [id number], [place] tel:[phone] [facility] [place] No Information 7 Teja Cage. [address] [place] [address], [place] [address], [place], [address], [place]. tel:[phone] Referring Provider: Niles Chaidez, [address] [place] [address] [address], [place], [address]. tel:[phone] OFFICE/OUTPA TIENT VISIT, [facility], [address] [place] [address], [place], [place], [id number], [place] tel:[phone] Oph Consult [facility] Office floaters, flashes,blur ry vision (chief complaint) Visual floaters, bilateralPres ence of pseudophakiaP CO (posterior capsular opacification ), bilateral 7 Tejaarmin Cage. [address] [place] [address], [address], [place], [address], [place]. tel:[phone] Referring Provider: Niles Chaidez, [address] [place] [address] [address], [place], [address]. tel:[phone] [facility], [address] [place] [address], [place], [place], [id number], [place] tel:[phone] [facility] CONSULT MARILU CANELA vision is improved OU (chief complaint)oc casional pressure OU (chief complaint)Us es ATs PRN for relief OU (chief complaint)vi román is improved (chief complaint)oc casional pressure (chief complaint)Us es ATs PRN for relief (chief complaint) No Information 7 Teja Niles. [address] [place] [address], [place] [address], [place], [address], [place]. tel:[phone] Referring Provider: Niles Chaidez, [address] [place] [address], [place], [address]. tel:[phone] [facility], [address] [place] [address], [id number], [place] tel:[phone] OPH CONSULT MARILU CANELA vision is improved OS (chief complaint)oi ly lids, eye discomfort in the pm OU (chief complaint)vi román is improved (chief complaint)oi ly lids, eye discomfort in the pm (chief complaint) No Information 7 Teja Niles. [address] [place] [address], [place] [address], [place], [address], [place]. tel:[phone] Referring Provider: Niles Chaidez, [address] [place] [address], [place], [address]. tel:[phone] [facility], [address] [place] [address], [id number], [place] tel:[phone] [facility] MARILU CANELA scratchy OS (chief complaint)sc ratchy (chief complaint) No Information 7 Teja Niles. [address] [place] [address], [place] [address], [place], [address], [place]. tel:[phone] Referring Provider: Niles Chaidez, [address] [place] [address], [place], [address]. tel:[phone] [facility], [address] [place] [address], [id number], [place] tel:[phone] [facility] [place] No Information 7 Teja Niles. [address] [place] [address], [place] [address], [place], [address], [place]. tel:[phone] Referring Provider: Niles Chaidez, [address] [facility] [address], [place], [address]. tel:[phone] OFFICE/OUTPA TIENT VISIT, [facility], [address] [place] [address], [place], [place], [id number], [place] tel:[phone] O[facility] Consult [facility] blurry vision (chief complaint)ps eudophakia check (chief complaint) Age-related nuclear cataract, left eyePresence of pseudophakia 7 Tejaarmin Cage. [address] [facility], [address], [place], [address], [place]. tel:[phone] Referring Provider: Niles Chaidez, [address] [place] [address] [address], [place], [address]. tel:[phone] [facility], [address] [place] [address], [place], [place], [id number], [place] tel:[phone] OPH CONSULT MARILU CANELA no complaints OD (chief complaint)no complaints (chief complaint) No Information 7 Tejaarmin Cage. [address] [facility], [address], [place], [address], [place]. tel:[phone] Referring Provider: Niles Chaidez, [address] [place] [address] [address], [place], [address]. tel:[phone] [facility], [address] [place] [address], [place], [place], [id number], [place] tel:[phone] [facility] No Information 7 Teja Cage. [address] [facility], [address], [place], [address], [place]. tel:[phone] Referring Provider: Niles Chaidez, [address] [place] [address] [address], [place], [address]. tel:[phone] OFFICE/OUTPA TIENT VISIT, [facility], [address] [place] [address], [place], [place], [id number], [place] tel:[phone] O[facility] Consult [facility] Office Cataract evaluation (chief complaint)Hy pertensive retinopathy evaluation (chief complaint) Age-related nuclear cataract, bilateralHype rtensionDry eye syndrome of bilateral lacrimal glandsBlephar itis of upper eyelidAllergi c conjunctiviti s, bilateralVisu al floaters, bilateralMyop ia of both eyes 7 Teja Cage. [address] [facility], [address], [place], [address], [place]. tel:[phone] Referring Provider: Niles Chaidez, [address] [facility] [address], [place], [address]. tel:[phone] Family History Family Member Type Diagnosis Age At Onset Problem (finding) No family history of Hy pertension Problem (finding) No family history of Gl aucoma Maternal grandmother Problem (finding) Macular degener ation Problem (finding) No family hist ory of Diabetes mellitus Payers Payer name Insurance type Covered constitution party ID Authoriza tion(s) [facility] [id number] Social History Type Description Quantity Date Captured Comments Alcohol Use Details Unknown Caffeine Use Details Unknown Tobacco Use Status No Information Smoking Status Never smoker Sex Male Vital Signs Date / Time: Height Weight BMI Pulse Rate Blood Pressure Temperature Respiratory Rate Body Surface Area Head Circumference BMI percentile Pulse Ox Inhaled Ox 2:53 PM 70.00 in 215.00 lbs 30.8 5 kg/m eter (2) Chief Complaint And Reason For Visit From encounter dated '05/24/2022 14:15'. decreased vision (chief complaint). Description: The 67 year old male presents for evaluation of decreased vision peripheral, the PT reports that he is starting to find it difficulty with his peripheral VA OU, sometimes his eyes are fuzzy OU, he has no difficulty in watching TV or driving at night.he does not use any ATs OUPCIOL OD STD/DV, OS STD/NV Plan Of Treatment Date Type Action Status No Information History Of Present Illness Encounter Date Complaint History Of Prese nt Illness decreased vision The 67 year old male presents for evaluation of decreased vision peripheral, the PT reports that he is starting to find it difficulty with his peripheral VA OU, sometimes his eyes are fuzzy OU, he has no difficulty in watching TV or driving at night. he does not use any ATs OUPCIOL OD STD/DV, OS STD/NV blurred vision The 62 year old male presents for evaluation of blurred vision in the right eye. It started about 1 year(s) ago. It affects VA not affected. The symptom is constant. The condition is significant. Pt states blurred vision in OD and bright head lights being bothersome at night. Pt denies any ocular discomfort with OU and denies any floaters or flashes of lights. H/O PCO OD. S/P YAG PC OS. blurry vision blurry vision OS floaters, flashes,blurry vision Patient complains of blurry vision followed by flashes and floaters, OS, started about a month ago. The blur is constant and that flashes and floaters are frequent. It's not getting any better/worse. Patient states that he was diagnosed with degenerative discs in his neck about a month ago. Uses ATs PRN for relief Uses ATs PRN for relief OU occasional pressure occasional p ressure OU vision is improved vision is imp roved OU oily lids, eye discomfort in the pm oily lids, eye discomfort in the pm OU vision is improved vision is imp roved OS scratchy scratchy OS blurry vision The 61 year old male presents for evaluation of blurry vision in the left eye. The condition is limiting patient's ability to read street signs and captions on television, states halos and glare while night driving. Patient ref by QUYEN Cornelius for further evaluation and treatment. Patient states mono cls OD Distance, OS near well over 10 yrs. pseudophakia check 1 week PO OD- 10 daysPt c/o dryness and white stringy discharge. Pt was outside on a Wed and was very windy. It is taking a while to get eyes to feel comfortable. Vision is good OD. Standard lens, target distanceRef by QUYEN in [place]--Continue Lotemax--Continue Brom-Site no complaints no complaints OD Hypertensive retinopathy evaluat ion The patient is present for evaluation of Hypertensive retinopathy evaluation in the right > left. It started about 1 year(s) ago. The symptom is constant. The condition is stable on current medication, followed by Dr. Pierce. Cataract evaluation The 61 year old male presents for evaluation of Cataract evaluation in the right > left. It started about 7 month(s) ago. It affects both near and far vision. The symptom is constant. The condition is limiting patient's ability to read street signs and captions on television, states halos and glare while night driving. Patient ref by QUYEN Cornelius for further evaluation and treatment. Optical biometry and tear ordered today 302/308Patient states mono cls OD Distance, OS near well over 10 yrs states he has had them out now for 12 days Instructions Date Instruction Additional Infor mation Impression/Plan Related to Pseud ophakia Impression/Plan Related to Visua l floaters, bilateral Impression/Plan - OD : Advised patient of condition. Discussed treatment options with patient. Surgical treatment is required. Schedule YAG PC- OD. Surgical risks and benefits were discussed, explained and understood by patient. Educational materials provided:Yag Capsulotomy. Related to Other secondary cataract, right eye Impression/Plan - St able continue to observe. Related to Pseudophakia Impression/Plan - No treatment is required at this time. Advised patient of condition. Discussed signs and symptoms of retinal detachment. Discussed signs and symptoms of PVD/floaters. Educational materials provided:Flashers/floaters. Related to Visual floaters, bilateral Follow up - RTO for YAG PC OD Impression/Plan - No treatment is required at this time. Advised patient of condition. Discussed signs and symptoms of retinal detachment. Discussed signs and symptoms of PVD/floaters. Educational materials provided:Flashers/floaters. Related to Visual floaters, bilateral Impression/Plan - s/p PCIOL OU - Stable Related to Presence of pseudophakia Impression/Plan - Di scussed diagnosis in detail with patient. Surgical risks and benefits were discussed, explained and understood by patient. Patient elects to have surgery. Schedule YAG OS. Will consider OD after OS. Educational materials provided:Yag Capsulotomy. Related to PCO (posterior capsular opacification), bilateral Follow up - RTO for YAG OS with JA Impression/Plan - Ca taracts account for the patient's complaints. Discussed all risks, benefits, procedures and recovery. Patient understands changing glasses will not improve vision. Patient desires to have surgery, recommend phacoemulsification with intraocular lens. Related to Age-related nuclear cataract, left eye Impression/Plan - S/ P Cataract 1 week 1st eye OD - Post operative instructions reviewed -Continue Lotemax and Brom-site as directed. Pt can d/c use of Besivance today. Std/IOL tgt Dist/ std/nearCEC [place] Related to Presence of pseudophakia Impression/Plan - Mi ld, pt is asymptomatic at this time. Recommend AT's often and warm compresses for flare ups of symptoms. Continue to observe. Related to Blepharitis of upper eyelid Impression/Plan - per [facility] Relate d to Myopia of both eyes Follow up - RTO for surgery CEIO L OD Impression/Plan - Ca taracts account for the patient's complaints. Discussed all risks, benefits, procedures and recovery. Patient understands changing glasses will not improve vision. Patient desires to have surgery, recommend phacoemulsification with intraocular lens.OD then OSstd lens/tgt dist ODstd lens/tgt near OS Related to Age-related nuclear cataract, bilateral Impression/Plan - No hypertensive retinopathy. Continue BP control and scheduled exams with PCP. Related to Hypertension Impression/Plan - No evidence of permanent changes to the cornea. Explained condition does not have a cure and will need artificial tears for maintenance. Related to Dry eye syndrome of bilateral lacrimal glands Impression/Plan - OU : No treatment is required at this time. Advised patient of condition. Discussed signs and symptoms of retinal detachment. Discussed signs and symptoms of PVD/floaters. Educational materials provided:Flashers/floaters. Related to Visual floaters, bilateral Assessments Type Assessment Date assessment Pseudophakia Apr-12-2023 impression Pseudophakia: Z96.1. s/p YAG PC OS / stable OU assessment Visual floaters, bilateral impression Visual floaters, bilateral: H43. 393. OU
--- OUTSIDE RECORDS SUMMARY | 2024-04-30 16:32 | XMS_ITS | Clinical Summary ---
Author Organization [facility] Address [address] [place] [address] Care Team Providers Care Dragline Engineer Name Role Phone Tonio Abad MD Primary [...] arise. Assessment & Plan (12/17/2018 12:18 PM AUTO BODY MECHANIC): Mr. Mcgregor is doing very well following [...] (09/24/2018): Added automatically from request for surgery [id number] Cervical pain (neck) 07/30/2018 020 Assessment & [...] Quadrivalent, Spl it, Preservative Free, Intramuscular 11/04/2016 Surgical History Surgery Date Site/Laterality Comments CARPAL TUNNEL RELEASE Left TRIGGER FINGER RELEASE thumb ROTATOR CUFF REPAIR Right ANTERIOR CERVICAL DISCECTOMY W/ FUSION 11/03/2016 C5-7 KNEE ARTHROSCOPY Bilateral Medical History Medical History Date Comments Anxiety Cervical radiculopathy Hypertension Dyslipidemia Vestibular neuritis Obesity (BMI 30.0-34.9) BMI 32 SCC (squamous cell carcinoma) Family History Medical History Relation Name Comments No Known Problems Father No Known Problems Mother Relation Name Status Comments Father Mother Social History Tobacco Use Types Packs/Day Years Used Date Smoking Tobacco: Never Smokeless Tobacco: Never Alcohol Use Standard Drinks/Week Comments Yes 0 (1 standard drink = 0.6 oz pur e alcohol) 3 per week Sex and Gender Information Value Date Recorded Sex Assigned at Not on file Legal Sex Male 2:32 AM AUTO BODY MECHANIC Gender Identity Not on file Sexual Orientation Not on file Obstetrics History Last Filed Vital Signs Vital Sign Reading Time Taken Comments Blood Pressure 155/90 02/18/2021 11:10 AM AUTO BODY MECHANIC Pulse 84 02/18/2021 11:10 AM AUTO BODY MECHANIC Temperature 37.4 C (99.4 F) 02/18/2021 9:18 AM AUTO BODY MECHANIC Respiratory Rate 18 02/18/2021 11:10 AM AUTO BODY MECHANIC Oxygen Saturation 95% 02/18/2021 9:18 AM AUTO BODY MECHANIC Inhaled Oxygen Concentration - - Weight 97.5 kg (215 lb) 02/18/2021 9:18 AM AUTO BODY MECHANIC Height 179.1 cm (5' 10.5 ) 02/18/2021 9:18 AM CS T Body Mass Index 30.41 02/18/2021 9:18 AM AUTO BODY MECHANIC Plan of Treatment Not on file Medical Devices Implanted Type Area Estimator And Drafter Device Identifier Shelf Expiration Date Model / Serial / Lot [employer] 3d Cervical [id number] 7 Deg - Sn/A - [id number] Implanted:Qty: 1 on 11/04/2018 by Nikolay Escobar MD at [facility] N/A: Spine Cervical Core Link [id number] 09/27/2023 [id number] / N/A / [id number] [employer] 700-025 I Factor Allograft Putty Syringe Graft 2.5cc Bone - Sn/A - [id number] Implanted:Qty: 1 on 11/04/2018 by Nikolay Escobar MD at [facility] N/A: Spine Cervical [employer] 06/11/2021 700-025 / N/A / [id number] Core Link Anodyne 16mm Level 1 Spine Cervical Anterior Plate Bone - [id number] Implanted:Qty: 1 on 11/04/2018 by Nikolay Escobar MD at [facility] N/A: Spine Cervical Core Link / / Core Link Anodyne 4mm 14mm Variable Angle Self Tap Spine Cervical Screw - [id number] Implanted:Qty: 4 on 11/04/2018 by Nikolay Escobar MD at [facility] N/A: Spine Cervical Core Link / / Core Link Anodyne 4.5mm 14mm Variable Angle Self Tap Spine Cervical Screw - [id number] Implanted:Qty: 1 on 11/04/2018 by Nikolay Escobar MD at [facility] N/A: Spine Cervical Core Link / / Insurance BLUE ACCESS CHOICE MD [employer] MD [employer] MD Advance Directives For more information, please contact: [phone] * Full Code (Latest Code Status on File) Date Activated Date Inactivated Comments 11/04/2018 12:08 PM 11/05/2018 5:11 PM Care Teams Dragline Engineer Relationship Specialty Start Date End Date Tonio Abad MD [address] [facility] [address] [place] [address] PCP - General 12/17/18
== END 2024-04-30 14:56 | disposition home or self-care (01) ==
PROVIDERS: PCP Family Medicine; Visit Provider Plastic Surgery
DX: M19.042 Primary osteoarthritis, left hand (principal)
CPT/HCPCS: 73130

== ENCOUNTER 2024-08-05 12:50 | Outpatient (CLI) | payer BC, SELFPAY ==
--- NOTE | 2024-08-05 15:00 | NEURO_ITS ---
Impression: #Non diabetic , complains of numbness of hands. ? # Mild bilateral Carpal Tunnel Syndrome, sensory more than motor. ? # Mild ulnar neuropathy across the elbows, left more than right. ? # Normal needle/EMG exam. Nerve Conduction Studies Anti Sensory Summary Table ?Stim Site NR Peak (ms) P-T Amp (?V) Site1 Site2 Delta-P (ms) Dist (cm) Kenneth (m/s) Left Median Anti Sensory (2-3nd Digit) Wrist ? 3.7 10.5 Wrist 2-3nd Digit 3.7 14.0 38 Wrist ? 4.1 9.8 Wrist 2-3nd Digit 3.7 14.0 38 Right Median Anti Sensory (2-3nd Digit) Wrist ? 3.7 21.3 Wrist 2-3nd Digit 3.7 14.0 38 Wrist ? 3.6 22.0 Wrist 2-3nd Digit 3.7 14.0 38 Left Radial Anti Sensory (Base 1st Digit) Wrist ? 2.4 15.1 Wrist Base 1st Digit 2.4 0.0 Right Radial Anti Sensory (Base 1st Digit) Wrist ? 2.6 3.2 Wrist Base 1st Digit 2.6 0.0 Left Ulnar Anti Sensory (5th Digit) Wrist ? 2.8 16.9 Wrist 5th Digit 2.8 14.0 50 Right Ulnar Anti Sensory (5th Digit) Wrist ? 2.0 14.8 Wrist 5th Digit 2.0 14.0 70 Motor Summary Table ?Stim Site NR Onset (ms) O-P Amp (mV) Site1 Site2 Delta-0 (ms) Dist (cm) Kenneth (m/s) Left Median Motor (Abd Poll Brev) Wrist ? 4.1 2.1 Elbow Wrist 5.3 31.0 58 Elbow ? 9.4 1.6 Right Median Motor (Abd Poll Brev) Wrist ? 3.6 3.6 Elbow Wrist 5.7 32.0 56 Elbow ? 9.3 2.8 Left Ulnar Motor (Abd Dig Minimi) Wrist ? 2.6 5.2 A Elbow Wrist 6.6 33.0 50 A Elbow ? 9.2 3.7 B Elbow Wrist 3.8 23.0 61 B Elbow ? 6.4 3.6 Right Ulnar Motor (Abd Dig Minimi) Wrist ? 2.7 6.3 A Elbow Wrist 6.1 33.0 54 A Elbow ? 8.8 4.9 B Elbow Wrist 4.0 23.0 58 B Elbow ? 6.7 4.5 F Wave Studies ?NR F-Lat (ms) L-R F-Lat (ms) Left Median (Mrkrs) (Abd Poll Brev) ? 31.81 0.80 Right Median (Mrkrs) (Abd Poll Brev) ? 31.01 0.80 Left Ulnar (Mrkrs) (Abd Dig Min) ? 33.55 1.69 Right Ulnar (Mrkrs) (Abd Dig Min) ? 31.85 1.69 EMG ?Side Muscle Nerve Root Ins Act Fibs Amp Dur Recrt Comment Right 1stDorInt Ulnar C8-T1 Nml Nml Nml Nml Nml Right Ext Indicis Radial (Post Int) C7-8 Nml Nml Nml Nml Nml Right Ext Digitorum Radial (Post Int) C7-8 Nml Nml Nml Nml Nml Right BrachioRad Radial C5-6 Nml Nml Nml Nml Nml Right PronatorTeres Median C6-7 Nml Nml Nml Nml Nml Right Abd Poll Brev Median C8-T1 Nml Nml Nml Nml Nml Right ABD Dig Min Ulnar C8-T1 Nml Nml Nml Nml Nml Right FlexPolLong Median (Ant Int) C7-8 Nml Nml Nml Nml Nml Right Abd Poll Long Radial (Post Int) C7-8 Nml Nml Nml Nml Nml Left 1stDorInt Ulnar C8-T1 Nml Nml Nml Nml Nml Left Ext Indicis Radial (Post Int) C7-8 Nml Nml Nml Nml Nml Left Ext Digitorum Radial (Post Int) C7-8 Nml Nml Nml Nml Nml Left BrachioRad Radial C5-6 Nml Nml Nml Nml Nml Left PronatorTeres Median C6-7 Nml Nml Nml Nml Nml Left Abd Poll Brev Median C8-T1 Nml Nml Nml Nml Nml Left ABD Dig Min Ulnar C8-T1 Nml Nml Nml Nml Nml Left FlexPolLong Median (Ant Int) C7-8 Nml Nml Nml Nml Nml Left Abd Poll Long Radial (Post Int) C7-8 Nml Nml Nml Nml Nml
== END 2024-08-05 12:51 | disposition home or self-care (01) ==
PROVIDERS: PCP Family Medicine; Visit Provider Plastic Surgery
DX: G56.03 Carpal tunnel syndrome, bilateral upper limbs (principal); G56.23 Lesion of ulnar nerve, bilateral upper limbs
CPT/HCPCS: 95886; 95911

== ENCOUNTER 2024-08-18 14:24 | Emergency (ER) | payer BC, SELFPAY ==
--- NOTE | ~2024-08-18 | XR_ITS ---
EXAM/ PROCEDURE: XR foot RT min 3V - 08/18/2024 14:46 CDT HISTORY: 69 years old Male with RT foot pain 5th metatarsal, foot popped today COMPARISON: None available TECHNIQUE: Four view(s) FINDINGS/ IMPRESSION: Acute nondisplaced transverse fracture of the base of the fifth metatarsal bone. There are no dislocations.Joint space narrowing, subchondral sclerosis, subchondral cyst formation an d osteophyte formation, compatible with mild osteoarthritis. Reviewed, dictated and finalized at location A.
--- OUTSIDE RECORDS SUMMARY | 2024-08-18 14:29 | XMS_ITS | Clinical Summary ---
Author Organization [facility] Address [address] [place] [address] Care Team Providers Care Folder Inspector Name Role Phone Tonio Abad MD Primary [...] arise. Assessment & Plan (12/17/2018 12:18 PM FIELD HUMAN RESOURCES MANAGER): Mr. Mcgregor is doing very well following [...] (09/24/2018): Added automatically from request for surgery [id number] Cervical pain (neck) 07/30/2018 020 Assessment & [...] on file Legal Sex Male 2:32 AM FIELD HUMAN RESOURCES MANAGER Gender Identity Not on file Sexual Orientation Not on file Obstetrics History Last Filed Vital Signs Vital Sign Reading Time Taken Comments Blood Pressure 155/90 02/18/2021 11:10 AM FIELD HUMAN RESOURCES MANAGER Pulse 84 02/18/2021 11:10 AM FIELD HUMAN RESOURCES MANAGER Temperature 37.4 C (99.4 F) 02/18/2021 9:18 AM FIELD HUMAN RESOURCES MANAGER Respiratory Rate 18 02/18/2021 11:10 AM FIELD HUMAN RESOURCES MANAGER Oxygen Saturation 95% 02/18/2021 9:18 AM FIELD HUMAN RESOURCES MANAGER Inhaled Oxygen Concentration - - Weight 97.5 kg (215 lb) 02/18/2021 9:18 AM FIELD HUMAN RESOURCES MANAGER Height 179.1 cm (5' 10.5) 02/18/2021 9:18 AM CS T Body Mass Index 30.41 02/18/2021 9:18 AM FIELD HUMAN RESOURCES MANAGER Plan of Treatment Not on file Medical Devices Implanted Type Area Label Fuser Tender Device Identifier Shelf Expiration Date Model / Serial / Lot [employer] 3d Cervical [id number] 7 Deg - Sn/A - [id number] Implanted:Qty: 1 on 11/04/2018 by Nikolay Escobar MD at [facility] N/A: Spine Cervical Core Link [id number] 09/27/2023 [id number] / N/A / [id number] [employer] 700-025 I Factor Allograft Putty Syringe Graft 2.5cc Bone - Sn/A - [id number] Implanted:Qty: 1 on 11/04/2018 by Nikolay Escobar MD at [facility] N/A: Spine Cervical [employer] 06/11/2021 700-025 / N/A / [id number] Core Link Anodyne 16mm Level 1 Spine Cervical Anterior Plate Bone - [id number] Implanted:Qty: 1 on 11/04/2018 by Nikolay Escobar MD at [facility] N/A: Spine Cervical Core Link / / Core Link Anodyne 4mm 14mm Variable Angle Self Tap Spine Cervical Screw - [id number] Implanted:Qty: 4 on 11/04/2018 by Nikolay Escobar MD at [facility] N/A: Spine Cervical Core Link / / Core Link Anodyne 4.5mm 14mm Variable Angle Self Tap Spine Cervical Screw - [id number] Implanted:Qty: 1 on 11/04/2018 by Nikolay Escobar MD at [facility] N/A: Spine Cervical Core Link / / Insurance [place] Advance Directives For more information, please contact: [phone] * Full Code (Latest Code Status on File) Date Activated Date Inactivated Comments 11/04/2018 12:08 PM 11/05/2018 5:11 PM Care Teams Folder Inspector Relationship Specialty Start Date End Date Tonio Abad MD [address] [facility] [address] [place] [address] PCP - General 12/17/18
--- OUTSIDE RECORDS SUMMARY | 2024-08-18 14:29 | XMS_ITS | Referral Summary ---
Author Organization [facility] Address [address] [place] [address] Care Team Providers Care Filter Screen Cleaner Name Role Phone Tonio Abad MD Primary [...] arise. Assessment & Plan (12/17/2018 12:18 PM COVERING MACHINE TENDER): Mr. Mcgregor is doing very well following [...] (09/24/2018): Added automatically from request for surgery [id number] Cervical pain (neck) 07/30/2018 020 Assessment & [...] on file Legal Sex Male 2:32 AM COVERING MACHINE TENDER Gender Identity Not on file Sexual Orientation Not on file Last Filed Vital Signs Vital Sign Reading Time Taken Comments Blood Pressure 155/90 02/18/2021 11:10 AM COVERING MACHINE TENDER Pulse 84 02/18/2021 11:10 AM COVERING MACHINE TENDER Temperature 37.4 C (99.4 F) 02/18/2021 9:18 AM COVERING MACHINE TENDER Respiratory Rate 18 02/18/2021 11:10 AM COVERING MACHINE TENDER Oxygen Saturation 95% 02/18/2021 9:18 AM COVERING MACHINE TENDER Inhaled Oxygen Concentration - - Weight 97.5 kg (215 lb) 02/18/2021 9:18 AM COVERING MACHINE TENDER Height 179.1 cm (5' 10.5) 02/18/2021 9:18 AM CS T Body Mass Index 30.41 02/18/2021 9:18 AM COVERING MACHINE TENDER Plan of Treatment Not on file Medical Devices Implanted Type Area Computational Mathematician Device Identifier Shelf Expiration Date Model / Serial / Lot C[employer] 3d Cervical [id number] 7 Deg - Sn/A - [id number] Implanted:Qty: 1 on 11/04/2018 by Nikolay Escobar MD at [facility] N/A: Spine Cervical Core Link [id number] 09/27/2023 [id number] / N/A / [id number] [employer] 700-025 I Factor Allograft Putty Syringe Graft 2.5cc Bone - Sn/A - [id number] Implanted:Qty: 1 on 11/04/2018 by Nikolay Escobar MD at [facility] N/A: Spine Cervical [employer] 06/11/2021 700-025 / N/A / [id number] Core Link Anodyne 16mm Level 1 Spine Cervical Anterior Plate Bone - [id number] Implanted:Qty: 1 on 11/04/2018 by Nikolay Escobar MD at [facility] N/A: Spine Cervical Core Link / / Core Link Anodyne 4mm 14mm Variable Angle Self Tap Spine Cervical Screw - [id number] Implanted:Qty: 4 on 11/04/2018 by Nikolay Escobar MD at [facility] N/A: Spine Cervical Core Link / / Core Link Anodyne 4.5mm 14mm Variable Angle Self Tap Spine Cervical Screw - [id number] Implanted:Qty: 1 on 11/04/2018 by Nikolay Escobar MD at [facility] N/A: Spine Cervical Core Link / / Insurance [facility] [address] [employer] MD [employer] MD Advance Directives For more information, please contact: [phone] * Full Code (Latest Code Status on File) Date Activated Date Inactivated Comments 11/04/2018 12:08 PM 11/05/2018 5:11 PM Care Teams Filter Screen Cleaner Relationship Specialty Start Date End Date Tonio Abad MD [address] [facility] [address] [place] [address] PCP - General 12/17/18
--- OUTSIDE RECORDS SUMMARY | 2024-08-18 14:29 | XMS_ITS | Clinical Summary ---
Author Organization [facility] [employer] Address [facility] [facility] [address] Care Team Providers Care Mine Administrator Supervisor Name Role Phone Tonio Abad MD Primary Care Provider [phone] Source Comments [facility] [employer],non-owned Affiliates and Associated Physician Practices is amultiple site organization consisting of ambulatory clinics and hospital sitesin [place], [place], [place] and [place]. This disclosure is being madepursuant to the Care Everywhere program and may not contain all information available regarding this patient. Last updated 17.[facility] [employer] Allergies Active Allergy Reactions Criticality Noted Date Comments Ibuprofen Urticaria Medium 10/24/2016 Medications * Be aware that medications may not be up to date on this document. Alwaysverify current medications with the patient. multivitamin with iron (Ultra Solo) capsule Take [...] Inject 2 mL subcutaneously every 14 days 5 Active clindamycin (Cleocin T) 1 % solution Apply to affected area 2 times daily Active diclofenac sodium EC (Voltaren) 75 MG tablet Take 1 (one) tablet by mouth 2 times daily as needed For pain. Active Active Problems Problem Noted Date Diagnosed Date Arm pain 11/18/2020 Status post cervical spinal fusion 12/17/2018 Encounters Date Type Department Care Team Description 07/16/2024 9:50 AM CDT Office Visit [facility] - Orthopedics [address] [place] [phone] Unknown, Provider Kade Pitt MD H/O elbow surgery (Primary Dx); Fall, sequela 05/21/2024 10:30 AM CDT Office Visit [facility] - Orthopedics [address] [place] [phone] Kade Pitt MD H/O elbow surgery (Primary Dx) 05/21/2024 Travel from Last 3 Months Immunizations Immunization Administration Dates Next Due INFLUENZA VACCINE, QUADR. (F LUZONE; FLULAVAL; FLUARIX; AFLURIA QUADRIVALENT; 6MO+), 0.5 ML (IIV4) 11/04/2016 Social History Tobacco Use Types Packs/Day Years Used Date Smoking Tobacco: Never Smokeless Tobacco: Never Tobacco Cessation:Counseling Given: Not Answered Alcohol Use Standard Drinks/Week Comments Yes 0 (1 standard drink = 0.6 oz pur e alcohol) PHQ-2 Answer Date Recorded Patient Health Questionnaire-2 Score 0 05/21/2024 Sex and Gender Information Value Date Recorded Sex Assigned at Not on file Legal Sex Male 10:38 AM CDT Gender Identity Not on file Sexual Orientation Not on file Last Filed Vital Signs Vital Sign Reading Time Taken Comments Blood Pressure 141/95 04/10/2024 1:45 PM PARTY PLAN SALES CONSULTANT Pulse 87 04/10/2024 1:45 PM PARTY PLAN SALES CONSULTANT Temperature 36.8 C (98.2 F) 04/10/2024 11:34 AM PARTY PLAN SALES CONSULTANT Respiratory Rate 13 04/10/2024 1:45 PM PARTY PLAN SALES CONSULTANT Oxygen Saturation 94% 04/10/2024 2:06 PM PARTY PLAN SALES CONSULTANT Inhaled Oxygen Concentration - - Weight 98.9 kg (218 lb) 04/03/2024 3:10 PM PARTY PLAN SALES CONSULTANT Height 179.1 cm (5' 10.5) 04/03/2024 3:10 PM CS T Body Mass Index 30.84 04/03/2024 3:10 PM PARTY PLAN SALES CONSULTANT Plan of Treatment Upcoming Encounters Date Type Department Care Team (Late st Contact Info) Description 09/10/2024 10:10 AM CDT Office Visit [facility] - Orthopedics [address] [place] [address], [place] [address] Kade Pitt MD [address] [place] [address] [place] [address] Health Maintenance Due Date Last Done Comments [...] 60-74 years 1-dose series) 2015 COVID-19 VACCINE ( - 2023-2 5 season) 2023 SCREENING FOR DIABETES 04/11/2024 INFLUENZA VACCINE (#1) 2024 11/04/2016 DEPRESSION SCREENING Completed 03/26/2024 HEPATITIS B VACCINE [...] this topic Medical Devices Implanted Type Area Institution Librarian Device Identifier Shelf Expiration Date Model / Serial / Lot [place] Sut [id number] + Othcrd 2.4mm Ntnl Implanted:Qty: 1 on 04/10/2024 by Kade Pitt MD at [facility] [employer] 07/12/2026 [id number] / / [id number] Insurance [facility] MEDICARE [place] [address] Care Teams Mine Administrator Supervisor Relationship Specialty Start Date End Date Tonio Abad MD [address] [place] [address] PCP - General Family Medicine 03/19/24
--- OUTSIDE RECORDS SUMMARY | 2024-08-18 14:29 | XMS_ITS | Continuity of Care Document ---
Author Organization Ophthalmology [facility] Address [address] [facility] [address] [place] [address] Phone Care Team Providers Care Soyfreeze Operator Name Role Phone Niles Lezama MD Unavailable [...] route every day 20 MG - Active methylphenidate ER 10 mg multiphase capsule 30-70,extended release take 1 capsule by oral route every day in the morning before breakfast - No Longer Active buspirone 5 mg tablet take 1 tablet by oral route 3 times every day 5 MG - No Longer Active MIRTAZAPINE (unknown strength) take 2 tablet by oral route every day at bedtime Not Available - No Longer Active Ambien 5 mg tablet take 2 tablet by oral route every day at bedtime 10 MG - No Longer Active pantoprazole 20 mg tablet,delayed release take 2 tablet by oral route every day 40 MG - No Longer Active Procedures Procedure Date OFFICE/OUTPATIENT VISIT, NEW [...] Providers Copied on Encounter OFFICE/OUTPA TIENT VISIT, [facility], [address] [place] [address], [id number], [place] tel:[phone] OPH CONSULT MARILU CANELA decreased vision (chief complaint) PseudophakiaV isual floaters, bilateral 3 Teja Cage. [address] [facility], [address] [place] [address], [id number], [place]. tel:[phone] Referring Provider: Duoglas Pierce MD, [address], [place], [address]. tel:[phone] [facility], [address], [id number], [place] tel:[phone] [facility] No Information 7 Tejaarmin Cage. [address] [facility], Suite [facility], [place], [place], [id number], [place]. tel:[phone] Referring Provider: Niles Chaidez, [address] [facility] [address], [place], [address]. tel:[phone] OFFICE/OUTPA TIENT VISIT, EST [facility], [address] [address], [place], [place], [id number], [place] tel:[phone] OPH CONSULT MARILU CANELA blurred vision (chief complaint) Other secondary cataract, right eyePseudophak iaVisual floaters, bilateral 7 Teja Cage. [address] [facility], [address], [place], [place], [id number], [place]. tel:[phone] Referring Provider: Niles Chaidez, [address] [place] [address] [address], [place], [address]. tel:[phone] [facility], [address] [place] [address], [place], [place], [id number], [place] tel:[phone] OPH CONSULT MARILU CANELA blurry vision OS (chief complaint) No Information 7 Teja Cage. [address] [facility], [address], [place], [place], [id number], [place]. tel:[phone] Referring Provider: Niles Chaidez, [address] [place] [address] [address], [place], [address]. tel:[phone] [facility], [address] [place], [place] [address]TE [facility], [place], [place], [id number], [place] tel:[phone] [facility] No Information 7 Teja Cage. [address] [facility], [address], [place], [place], [id number], [place]. tel:[phone] Referring Provider: Niles Chaidez, [address] [place] [address] [address], [place], [address]. tel:[phone] OFFICE/OUTPA TIENT VISIT, EST [facility], [address] [place], [place] [address], [place], [place], [id number], [place] tel:[phone] Oph Consult [facility] floaters, flashes,blur ry vision (chief complaint) Visual floaters, bilateralPres ence of pseudophakiaP CO (posterior capsular opacification ), bilateral 7 Teja Niles. [address] [place] [address], [place] [address], [place], [place], [id number], [place]. tel:[phone] Referring Provider: Niles Chaidez, [address] [place] [address], [place], [address]. tel:[phone] [facility], [address] [place] [address], [id number], [place] tel:[phone] OPH CONSULT MARILU CANELA vision is improved OU (chief complaint)oc casional pressure OU (chief complaint)Us es ATs PRN for relief OU (chief complaint) No Information 7 Teja Niles. [address] [place] [address], [place] [address], [place], [place], [id number], [place]. tel:[phone] Referring Provider: Niles Chaidez, [address] [place] [address], [place], [address]. tel:[phone] [facility], [address] [place] [address], [id number], tel:[phone] OPH CONSULT MARILU CANELA vision is improved OS (chief complaint)oi ly lids, eye discomfort in the pm OU (chief complaint) No Information 7 Tejaarmin Cage. [address] [place] [address], [place] [address], [place], [place], [id number], [place]. tel:[phone] Referring Provider: Niles Chaidez, [address] [place] [address], [place], [address]. tel:[phone] [facility], [address] [place] [address], [id number], [place] tel:[phone] OPH CONSULT MARILU CANELA scratchy OS (chief complaint) No Information 7 Tejaarmin Cage. [address] [place] [address], [place] [address], [place], [place], [id number], [place]. tel:[phone] Referring Provider: Niles Chaidez, [address] [facility] [address], [place], [address]. tel:[phone] [facility], [address] [place] [address] [address], [place], [place], [id number], [place] tel:[phone] [facility] No Information 7 Teja Cage. [address] [facility], [address], [place], [place], [id number], [place]. tel:[phone] Referring Provider: Niles Chaidez, [address] [place] [address] [address], [place], [address]. tel:[phone] OFFICE/OUTPA TIENT VISIT, [facility], [address] [place] [address], [place], [place], [id number], [place] tel:[phone] Oph Consult [facility] blurry vision (chief complaint)ps eudophakia check (chief complaint) Age-related nuclear cataract, left eyePresence of pseudophakia 7 Teja Cage. [address] [place] [address], [address], [place], [place], [id number], [place]. tel:[phone] Referring Provider: Niles Chaidez, [address] [place] [address] [address], [place], [address]. tel:[phone] [facility], [address] [place] [address], [place], [place], [id number], [place] tel:[phone] OPH CONSULT MARILU CANELA no complaints OD (chief complaint) No Information 7 Teja Cage. [address] [facility], [address], [place], [place], [address], [place]. tel:[phone] Referring Provider: Niles Chaidez, [address] [place] [address] [address], [place], [address]. tel:[phone] [facility], [address] [place] [address], [place], [place], [id number], [place] tel:[phone] [facility] No Information 7 Teja Cage. [address] [facility], [address], [place], [place], [id number], . tel:[phone] Referring Provider: Niles Chaidez, [address] [facility] [address], [place], [address]. tel:[phone] OFFICE/OUTPA TIENT VISIT, NEW [facility], [address] [facility], [place], [place], [id number], tel:[phone] O[facility] Consult [facility] Office Cataract evaluation (chief complaint)Hy pertensive retinopathy evaluation (chief complaint) Age-related nuclear cataract, bilateralHype rtensionDry eye syndrome of bilateral lacrimal glandsBlephar itis of upper eyelidAllergi c conjunctiviti s, bilateralVisu al floaters, bilateralMyop ia of both eyes 7 Teja Cage. [address] [facility], [address], [place], [place], [id number], . tel:[phone] Referring Provider: Niles Chaidez, [address] [place] [address], [place], [address]. tel:[phone] Family History Family Member Type Diagnosis Age At Onset Problem (finding) No family history of Hy pertension Problem (finding) No family history of Gl au[place] Maternal grandmother Problem (finding) degenerative di sorder of macula Problem (finding) No family hist ory of Diabetes mellitus Payers Payer name Insurance type Covered alliance party ID Authoriza tion(s) [facility] [employer] BL [id number] Social History Type Description Quantity Date Captured Comments Alcohol Use Details Unknown Caffeine Use Details Unknown Tobacco Use Status No Information Smoking Status Never smoker Sex Male Vital Signs Date / Time: Height Weight BMI Pulse Rate Blood Pressure Temperature Respiratory Rate Body Surface Area Head Circumference Head Circ. Percentile Wt./Adonis. Percentile BMI percentile Pulse Ox Inhaled Ox 2:53 PM 70.00 in 97.522 kg (215.00 lbs) 30.8 5 kg/m eter (2) Chief Complaint And Reason For Visit From encounter dated '05/24/2022 13:15'. decreased vision (chief complaint). Description: The 67 year old male presents for evaluation of decreased vision peripheral, the PT reports that he is starting to find it difficulty with his peripheral VA OU, sometimes his eyes are fuzzy OU, he has no difficulty in watching TV or driving at night.he does not use any ATs OUPCIOL OD STD/DV, OS STD/NV Reason For Referral Reason For Referral No Information History Of Present Illness Encounter [...] Standard lens, target distanceRef by QUYEN in [place]--Continue Lotemax--Continue Brom-Site no complaints no complaints OD [...] had them out now for 12 days Functional Status Date Functional Assessmen t No Information Instructions Date Instruction Additional Infor sheba Impression/Plan Related to Visua l floaters, bilateral Impression/Plan Related to Pseud ophakia Follow up - RTO for YAG PC OD Impression/Plan - No treatment is required at this time. Advised patient of condition. Discussed signs and symptoms of retinal detachment. Discussed signs and symptoms of PVD/floaters. Educational materials provided:Flashers/floaters. Related to Visual floaters, bilateral Impression/Plan - St able continue to observe. Related to Pseudophakia Impression/Plan - OD : Advised patient of condition. Discussed treatment options with patient. Surgical treatment is required. Schedule YAG PC- OD. Surgical risks and benefits were discussed, explained and understood by patient. Educational materials provided:Yag Capsulotomy. Related to Other secondary cataract, right eye Follow up - RTO for YAG OS with KAVITHA Impression/Plan - Di scussed diagnosis in detail with patient. Surgical risks and benefits were discussed, explained and understood by patient. Patient elects to have surgery. Schedule YAG OS. Will consider OD after OS. Educational materials provided:Yag Capsulotomy. Related to PCO (posterior capsular opacification), bilateral Impression/Plan - s/p PCIOL OU - Stable Related to Presence of pseudophakia Impression/Plan - No treatment is required at this time. Advised patient of condition. Discussed signs and symptoms of retinal detachment. Discussed signs and symptoms of PVD/floaters. Educational materials provided:Flashers/floaters. Related to Visual floaters, bilateral Impression/Plan - S/ P Cataract 1 week 1st eye OD - Post operative instructions reviewed -Continue Lotemax and Brom-site as directed. Pt can d/c use of Besivance today. Std/IOL tgt Dist/ std/nearCEC [place] Related to Presence of pseudophakia Impression/Plan - Ca taracts account for the patient's complaints. Discussed all risks, benefits, procedures and recovery. Patient understands changing glasses will not improve vision. Patient desires to have surgery, recommend phacoemulsification with intraocular lens. Related to Age-related nuclear cataract, left eye Impression/Plan - OU : No treatment is required at this time. Advised patient of condition. Discussed signs and symptoms of retinal detachment. Discussed signs and symptoms of PVD/floaters. Educational materials provided:Flashers/floaters. Related to Visual floaters, bilateral Impression/Plan - No evidence of permanent changes to the cornea. Explained condition does not have a cure and will need artificial tears for maintenance. 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 Continue BP control and scheduled exams with PCP. Related to Hypertension Impression/Plan - Ca taracts account for the patient's complaints. Discussed all risks, benefits, procedures and recovery. Patient understands changing glasses will not improve vision. Patient desires to have surgery, recommend phacoemulsification with intraocular lens.OD then OSstd lens/tgt dist ODstd lens/tgt near OS Related to Age-related nuclear cataract, bilateral Follow up - RTO for surgery CEIO L OD Impression/Plan - per CEC Relate d to Myopia of both eyes Impression/Plan - Mi ld, pt is asymptomatic at this time. Recommend AT's often and warm compresses for flare ups of symptoms. Continue to observe. Related to Blepharitis of upper eyelid Assessments Type Assessment Date assessment Pseudophakia impression Pseudophakia: Z96.1. s/p YAG PC OS / stable OU assessment Visual floaters, bilateral May- impression Visual floaters, bilateral: H43. 393. OU Patient Care Teams Name Effective Dates (start - stop) Status Members No Information
--- OUTSIDE RECORDS SUMMARY | 2024-08-18 14:30 | XMS_ITS | Encounter Summary ---
Author Organization [facility] Address [facility] [facility] [place] [address] Care Team Providers Care Learning Development Specialist Name Role Phone Tonio Abad MD Primary Care Provider [phone] Encounter Details Date Type Department Care Team (Late Contact Info) Description 07/03/2022 Lab Requisition [facility] - DermPath Lab [address] [facility] [place] [address] Diandra Anguiano, PA-C [address] [place] [phone] Dermatitis, unspecified Social History Tobacco Use Types Packs/Day Years Used Date Smoking Tobacco: Never Assessed Sex and Gender Information Value Date Recorded Sex Assigned at Not on file Legal Sex Male 10:38 AM CDT Gender Identity Not on file Sexual Orientation Not on file documented as of this encounter Plan of Treatment Upcoming Encounters Date Type Department Care Team (Late Contact Info) Description 09/10/2024 10:10 AM CDT Office Visit [facility] - Orthopedics [address] [place] [address] Kade Pitt MD [address] [place] [address] [place] [address] documented as of this encounter Procedures Procedure Name Priority Date/Time Associated Diagnosis Comments DERMATOPATHOLOGY Routine 07/03/2022 12:0 0 AM CDT Dermatitis, unspecified documented in this encounter Results * DERMATOPATHOLOGY (07/03/2022 12:00 AM CDT) Case Report Dermatopathology Report Case: [id number] Authorizing Provider: Diandra Anguiano PA-C Collected: 07/03/2022 12:00 AM Ordering Location: [facility] DermPath Lab Received: 07/04/2022 03:21 PM Pathologist: Kevin Stiles MD Specimens: A) - Skin, left neck superior B) - Skin, left neck inferior 5:49 PM CDT DERMATOPATHOLOGY LABORATORY Final Diagnosis Specimen A. 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 SKIN, left neck inferior: PRURIGO NODULARIS (L28.1) 5:49 PM CDT DERMATOPATHOLOGY LABORATORY at 1749 CDT Clinical History A-B: Prurigo vs. Folliculitis 5:49 PM CDT DERMATOPATHOLOGY LABORATORY Gross Description Specimen A: Received is one formalin filled container labeled with the patient's name and designated left neck superior. The specimen consists of a shave biopsy measuring [id number]. Jar 0. Specimen B: Received is one formalin filled container labeled with the patient's name and designated left neck inferior. The specimen consists of a shave biopsy measuring 5a9s0gw. Jar 0. 5:49 PM CDT DERMATOPATHOLOGY LABORATORY [...] characteristic determined by the Dermatopathology Laboratory at [facility], directed by Dr. Clarice Stiles. These tests need not be, and therefore are not, approved by the [place] Food and Drug Administration. The tests are used for clinical purposes. Billing Codes Specimen Charges Stain Charges 63854 34686 1 1 3 5:49 PM CDT DERMATOPATHOLOGY LABORATORY Embedded Images 3 5:49 PM CDT DERMATOPATHOLOGY LABORATORY Pathology/Cytology TISSUE SPECIMEN FROM SKIN / Unknown 07/03/2022 07/04/2022 3:21 PM CDT Miscellaneous samples (specimen) TISSUE SPECIMEN FROM SKIN / Unknown 07/03/2022 07/04/2022 3:21 PM CDT Diandra Anguiano PA-C LAB - PATHOLOGY/CYTOLOGY DENNISE HENRI Final Result Performing Organization Address City/State/[facility] Co de Phone Number DERMATOPATHOLOGY LABORATORY [facility] - Department of Dermatology [facility] Special[facility] Medicine [address] [place] [address], [address] [phone] documented in this encounter Visit Diagnoses Diagnosis Dermatitis, unspecified documented in this encounter Care Teams Learning Development Specialist Relationship Specialty Start Date End Date Tonio Abad MD [address] [place] [address] PCP - General Family Medicine 03/19/24 documented as of this encounter
--- OUTSIDE RECORDS SUMMARY | 2024-08-18 14:30 | XMS_ITS | Continuity of Care Document ---
Author Organization Ophthalmology [facility] Address [address] [facility] [address] [place] [address] Phone Care Team Providers Care Propellant Charge Loader Name Role Phone Niles Lezama MD Unavailable [...] Copied on Encounter OFFICE/OUTPA TIENT VISIT, [facility], [address] [place] [address], [id number], [place] tel:[phone] OPH CONSULT MARILU CANELA decreased vision (chief complaint) PseudophakiaV isual floaters, bilateral 3 Teja Cage. [address] [facility], [address] [place] [address], [id number], [place]. tel:[phone] Referring Provider: Douglas Pierce MD, [address], [place], [address]. tel:[phone] [facility], [address], [id number], [place] tel:[phone] [facility] No Information 7 Tejaarmin Cage. [address] [facility], Suite [facility], [place], [place], [id number], [place]. tel:[phone] Referring Provider: Niles Chaidez, [address] [facility] [address], [place], [address]. tel:[phone] OFFICE/OUTPA TIENT VISIT, EST [facility], [address] [address], [place], [place], [id number], [place] tel:[phone] OPH CONSULT MARILU CANELA blurred vision (chief complaint) Other secondary cataract, right eyePseudophak iaVisual floaters, bilateral 7 Teja Cage. [address] [facility], [address], [place], [place], [id number], [place]. tel:[phone] Referring Provider: Niles Chaidez, [address] [place] [address] [address], [place], [address]. tel:[phone] [facility], [address] [place] [address], [place], [place], [id number], [place] tel:[phone] OPH CONSULT MARILU CANELA blurry vision OS (chief complaint) No Information 7 Teja Cage. [address] [facility], [address], [place], [place], [id number], [place]. tel:[phone] Referring Provider: Niles Chaidez, [address] [place] [address] [address], [place], [address]. tel:[phone] [facility], [address] [place], [place] [address]TE [facility], [place], [place], [id number], [place] tel:[phone] [facility] [place] No Information 7 Teja Cage. [address] [facility], [address], [place], [place], [id number], [place]. tel:[phone] Referring Provider: Niles Chaidez, [address] [place] [address] [address], [place], [address]. tel:[phone] OFFICE/OUTPA TIENT VISIT, EST [facility], [address] [place], [place] [address], [place], [place], [id number], [place] tel:[phone] Oph Consult [facility] floaters, flashes,blur ry vision (chief complaint) Visual floaters, bilateralPres ence of pseudophakiaP CO (posterior capsular opacification ), bilateral 7 Teja Niles. [address] [place] [address], [address] [address], [place], [place], [id number], [place]. tel:[phone] Referring Provider: Niles Chaidez, [address] [place] [address], [place], [address]. tel:[phone] [facility], [address] [place] [address], [id number], [place] tel:[phone] OPH CONSULT MARILU CANELA vision is improved OU (chief complaint)oc casional pressure OU (chief complaint)Us es ATs PRN for relief OU (chief complaint) No Information 7 Teja Niles. [address] [place] [address], [address] [place] [address], [place], [place], [id number], [place]. tel:[phone] Referring Provider: Niles Chaidez, [address] [place] [address], [place], [address]. tel:[phone] [facility], [address] [place] [address], [id number], tel:[phone] OPH CONSULT MARILU CANELA vision is improved OS (chief complaint)oi ly lids, eye discomfort in the pm OU (chief complaint) No Information 7 Tejaarmin Cage. [address] [place] [address], [address] [place] [address], [place], [place], [id number], [place]. tel:[phone] Referring Provider: Niles Chaidez, [address] [place] [address], [place], [address]. tel:[phone] [facility], [address] [place] [address], [id number], [place] tel:[phone] OPH CONSULT MARILU CANELA scratchy OS (chief complaint) No Information 7 Tejaarmin Cage. [address] [place] [address], [place] [address], [place], [place], [id number], [place]. tel:[phone] Referring Provider: Niles Chaidez, [address] [facility] [address], [place], [address]. tel:[phone] [facility], [address] [place] [address] [address], [place], [place], [id number], [place] tel:[phone] [facility] [place] No Information 7 Teja Cage. [address] [facility], [address], [place], [place], [id number], [place]. tel:[phone] Referring Provider: Niles Chaidez, [address] [place] [address] [address], [place], [address]. tel:[phone] OFFICE/OUTPA TIENT VISIT, [facility], [address] [place] [address], [place], [place], [id number], [place] tel:[phone] Oph Consult [facility] blurry vision (chief complaint)ps eudophakia check (chief complaint) Age-related nuclear cataract, left eyePresence of pseudophakia 7 Teja Cage. [address] [place] [address], [address], [place], [place], [id number], [place]. tel:[phone] Referring Provider: Niles Chaidez, [address] [place] [address] [address], [place], [address]. tel:[phone] [facility], [address] [place] [address], [place], [place], [id number], [place] tel:[phone] OPH CONSULT MARILU CANELA no complaints OD (chief complaint) No Information 7 Teja Cage. [address] [facility], [address], [place], [place], [id number], [place]. tel:[phone] Referring Provider: Niles Chaidez, [address] [place] [address] [address], [place], [address]. tel:[phone] [facility], [address] [place] [address] [address], [place], [place], [id number], [place] tel:[phone] [facility] No Information 7 Teja Cage. [address] [facility], [address], [place], [place], [id number], . tel:[phone] Referring Provider: Niles Chaidez, [address] [facility] [address], [place], [address]. tel:[phone] OFFICE/OUTPA TIENT VISIT, NEW [facility], [address] [facility], [place], [place], [id number], tel:[phone] Oph Consult [facility] Office Cataract evaluation (chief complaint)Hy pertensive retinopathy evaluation (chief complaint) Age-related nuclear cataract, bilateralHype rtensionDry eye syndrome of bilateral lacrimal glandsBlephar itis of upper eyelidAllergi c conjunctiviti s, bilateralVisu al floaters, bilateralMyop ia of both eyes 7 Teja Cage. [address] [facility], [address], [place], [place], [id number], . tel:[phone] Referring Provider: Niles Chaidez, [address] [place] [address], [place], [address]. tel:[phone] Family History Family Member Type Diagnosis Age At Onset Problem (finding) No family history of Hy pertension Problem (finding) No family history of Gl [place] Maternal grandmother Problem (finding) degenerative di sorder of macula Problem (finding) No family hist ory of Diabetes mellitus Payers Payer name Insurance type Covered constitution party ID Authoriza tion(s) [facility] [employer] [id number] Social History Type Description Quantity Date Captured [...] Standard lens, target distanceRef by QUY[place] in [place]--Continue Lotemax--Continue Brom-Site no complaints no complaints OD [...] No Information Instructions Date Instruction Additional Infor mation Impression/Plan [...] d/c use of Besivance today. Std/IOL tgt DistL2/21 std/nearCEC [place] Related to Presence of pseudophakia Impression/Plan - [...] bilateral Assessments Type Assessment Date assessment Pseudophakia impression Pseudophakia: Z96.1. s/p YAG PC OS / stable OU assessment Visual floaters, bilateral May- impression Visual floaters, bilateral: H43. 393. OU Patient Care Teams Name Effective Dates (start - stop) Status Members No Information
--- OUTSIDE RECORDS SUMMARY | 2024-08-18 14:30 | XMS_ITS | Encounter Summary ---
Author Organization [facility] Healthcare Address [address] [place] [address] Care Team Providers Care Tassel Clipper Name Role Phone Tonio Abad MD Primary Care Provider Encounter Details Date Type Department Care Team (Late st Contact Info) Description 02/17/2021 Telephone [facility] - Interventional Radiology [address] [place] [address] Jaye Vance RN Social History Tobacco Use Types Packs/Day Years Used Date Smoking Tobacco: Never Smokeless Tobacco: Never Alcohol Use Standard Drinks/Week Comments Yes 0 (1 standard drink = 0.6 oz pur e alcohol) 3 per week Sex and Gender Information Value Date Recorded Sex Assigned at Not on file Legal Sex Male 2:32 AM [employer] Gender Identity Not on file Sexual Orientation Not on file documented as of this encounter Plan of Treatment Not on file documented as of this encounter Visit Diagnoses Not on filedocumented in this encounter Care Teams Tassel Clipper Relationship Specialty Start Date End Date Tonio Abad MD [address] [facility] [address] [place] [address] PCP - General 12/17/18 documented as of this encounter
[2024-08-18 14:33] VITALS: BP 150/77; PULSE 72; RESP 18; TEMP 36.3; O2SAT 97
--- NOTE | 2024-08-18 14:44 | ED_ITS ---
HPI - General Adult General Chief complaint: Extremity Injury, Lower Stated complaint: RT Foot Pain History of Present Illness HPI narrative: Devaughn Simmons Is a 69-year-old male who presents today with complaints of lateral right foot pain. He states that he has had some pain to this area in his foot off and on for couple months that he noticed would come on more after he is bearing weight for long periods, today he states he had shoes on was walking across the room he felt and heard a pop in that right lateral side of his foot and has had increasing worsening pain. She denies rolling his ankle denies any acute known trauma. Related Data Home Medications ?Medication ?Instructions ?Recorded ?Confirmed ?Last Taken ?Type cetirizine 5 mg-pseudoephedrine ER 1 tablet PO Q12H PRN Congestion 12/13/18 08/04/24 03/23/20 History 120 mg tablet,extended release,12hr (Zyrtec-D) dupilumab 300 mg/2 mL subcutaneous mg subcut 03/17/24 08/04/24 Unknown History pen injector (Dupixent) Allergies Allergy/AdvReac Type Severity Reaction Status Date / Time KARLOS Inhibitors Allergy Severe Hives Verified 08/18/24 14:49 ibuprofen Allergy Severe HIVES Verified 08/18/24 14:49 Review of Systems Review of Systems: All systems reviewed & are unremarkable except as noted in HPI and below PMFSH Past Medical History Medical History Left hip pain Right hip pain Rotator cuff tear, left Hiatal hernia Dysphagia Chronic GERD Essential (primary) hypertension JAIME (generalized anxiety disorder) HLD (hyperlipidemia) Major depressive disorder, recurrent episode, moderate Mild cognitive impairment Surgical History Surgical History History of elbow surgery R distal biceps repair H/O ventral hernia repair Ventral hernia repair on 01/03/22 S/P rotator cuff repair bilateral History of meniscectomy of left knee Ulnar nerve entrapment at elbow Status post carpal tunnel release History of cervical spinal surgery Family History Family History Father Hypertension Family history of cardiovascular disease Mother Hypertension Sibling Family history of cardiovascular disease Family history of malignant neoplasm of breast in first degree relative Social History Social History Social History: Smoking status: Never smoker Second hand tobacco smoke exposure: No Additional smoking assessment comments: DENEIS ALL FORMS OF TOBACCO USE Alcohol intake: current Drinks per week: 2 Substance use: never Substance use type: does not use Do You Feel Safe in your Home?: Yes Lack of Transportation: No Lack of Food: Never True Current Housing: I Have Housing Concerned About Future Housing: No Difficulty Paying Gas/Electric Bills: No Difficulty Paying for Meds: No Currently Unemployed: No Education: Associate Degree Difficulty w/ Childcare or Family Care: No Living arrangements: with family Occupation/Education: occupation Gender identity (if verbalized by the patient): Male Sexual Orientation (if Verbalized by the Patient): Straight or Heterosexual Spiritual care concerns: No Exam Narrative: GENERAL: Well-appearing, well-nourished, and in no acute distress. HEAD: Normocephalic, atraumatic. EYES: PERRLA and EOMI. ENT: Nares clear, no rhinorrhea or epistaxis. Mucous membranes moist. Oropharynx without tonsillar hypertrophy exudate or other lesions. NECK: Supple. No adenopathy or masses. No carotid bruits or JVD CHEST: Clear to auscultation. No respiratory distress. No wheezes rales or rhonchi HEART: Regular rate and rhythm. No murmur heard. Normal peripheral pulses. ABDOMEN: Soft, nontender, nondistended, normal active bowel sounds. EXTREMITIES: Normal range of motion. No edema. SKIN: Warm, dry, no rash. NEURO: No focal deficits. Alert and oriented x3. PSYCH: Normal mood and affect. Course Course Level of Care: Express Care Visit Vital Signs Vital signs: Vital Signs Temperature 36.3 C L 08/18/24 14:33 Pulse Rate 72 08/18/24 14:33 Respiratory Rate 18 08/18/24 14:33 Blood Pressure 150/77 H 08/18/24 14:33 Pulse Oximetry 97 08/18/24 14:33 Oxygen Delivery Room Air 08/18/24 14:33 Temperature 36.3 C L 08/18/24 14:33 Pulse Rate 72 08/18/24 14:33 Respiratory Rate 18 08/18/24 14:33 Blood Pressure 150/77 H 08/18/24 14:33 Pulse Oximetry 97 08/18/24 14:33 Oxygen Delivery Room Air 08/18/24 14:33 Medical Decision Making MDM Narrative Medical decision making narrative: 69-year-old with complaints of right lateral foot pain for couple months back are worse today after hearing and feeling a pop to the area. On exam pain is reproducible with palpation to the right metatarsal area to the lateral aspect and the bottom of the foot area. Range of motion intact strong pulses neurovascular intact no swelling, no ecchymosis, no erythema. He is concerned of having a fracture in his foot. Plan to check XR and referred to Podiatry. XR: Acute nondisplaced transverse fracture of the base of the fifth metatarsal bone. There are no dislocations.Joint space narrowing, subchondral sclerosis, subchondral cyst formation and osteophyte formation, compatible with mild osteoarthritis. Patient updated on xr findings and plan for short leg posterior splint, non weight bearing will provide with crutches with Podiatry and orthopedic referral. Patient is agreeable to this plan Denies needing anything further Patient re-evaluated post splint placement, no numbness /tingling Denies feeling too tight Remains neurovascular intact Medical Records Medical records reviewed: Yes I reviewed the external patient's medical records. Vital Signs Vital Signs: Vital Signs Temperature 36.3 C L 08/18/24 14:33 Pulse Rate 72 08/18/24 14:33 Respiratory Rate 18 08/18/24 14:33 Blood Pressure 150/77 H 08/18/24 14:33 Pulse Oximetry 97 08/18/24 14:33 Oxygen Delivery Room Air 08/18/24 14:33 Temperature 36.3 C L 08/18/24 14:33 Pulse Rate 72 08/18/24 14:33 Respiratory Rate 18 08/18/24 14:33 Blood Pressure 150/77 H 08/18/24 14:33 Pulse Oximetry 97 08/18/24 14:33 Oxygen Delivery Room Air 08/18/24 14:33 Vitals reviewed by mn Imaging Data Radiologist's impression: Acute nondisplaced transverse fracture of the base of the fifth metatarsal bone. There are no dislocations.Joint space narrowing, subchondral sclerosis, subchondral cyst formation and osteophyte formation, compatible with mild osteoarthritis. Discharge Plan Discharge Clinical Impression: Closed fracture of fifth metatarsal bone Qualifiers: Encounter type: initial encounter Fracture alignment: nondisplaced Laterality: right Qualified Code(s): S92.354A - Nondisplaced fracture of fifth metatarsal bone, right foot, initial encounter for closed fracture Patient Disposition: Home Condition: Stable Instructions: Antibiotic Form Additional Instructions: Continue to keep your splint dry and intact Do not bear weight on your right foot, use the crutches as ordered Elevate and Ice area to help with pain and swelling Call today to make follow up appointment with orthopedics or podiatry Follow up with your PCP in 1 week If you develop increased pain/ swelling/ numbness /tingling to your foot then go to the ER. Patient Language: Belarusian Prescriptions: No Action cetirizine-pseudoephedrine [Zyrtec-D] 5-120 mg tablet extended release 12 hr 1 tablet PO Q12H PRN (Reason: Congestion) dupilumab 100 mg/0.67 mL syringe 300 mg subcut .q2 weeks Qty: 0.67 0RF Dupixent Pen 300 mg/2 mL pen injector subcut montelukast 10 mg tablet See Rx Instructions .ROUTE .COMPLEX PRN (Reason: Congestion) Qty: 90 3RF Rx Instructions: TAKE 1 TABLET BY MOUTH ONCE DAILY NEEDED FOR ALLERGY SYMPTOMS olmesartan 40 mg tablet 40 mg PO DAILY Qty: 90 1RF Patient Comments: HS atorvastatin 40 mg tablet 40 mg PO HS Qty: 90 2RF omeprazole 40 mg capsule,delayed release(DR/EC) See Rx Instructions .ROUTE .COMPLEX Qty: 100 1RF Dose Instruction: Take 1 capsule by mouth in the morning Rx Instructions: Take 1 capsule by mouth in the morning zolpidem 10 mg tablet 10 mg PO HS Qty: 30 2RF escitalopram oxalate 20 mg tablet 20 mg PO DAILY Qty: 90 2RF Patient Comments: QAM amlodipine 5 mg tablet 5 mg PO DAILY Qty: 90 2RF diclofenac sodium 75 mg tablet,delayed release (DR/EC) See Rx Instructions .ROUTE .COMPLEX Qty: 60 0RF Dose Instruction: Take 1 tablet by mouth twice daily as needed for pain Rx Instructions: Take 1 tablet by mouth twice daily as needed for pain Follow-up/Referrals: Tonio Abad MD [Primary Care Provider] - 1 Week Felipe Rios Jr., DPM [Physician] - 2 Days Sarthak Root MD [Physician] - 2 Days Time of Disposition: 15:31
== END 2024-08-18 15:48 | disposition home or self-care (01) ==
PROVIDERS: Emergency Provider Nurse Practitioner Family; PCP Family Medicine
DX: S92.354A Nondisplaced fracture of fifth metatarsal bone, right foot, initial encounter for closed fracture (principal); X58.XXXA Exposure to other specified factors, initial encounter; I10 Essential (primary) hypertension; E78.5 Hyperlipidemia, unspecified; K21.9 Gastro-esophageal reflux disease without esophagitis; F41.1 Generalized anxiety disorder; F33.9 Major depressive disorder, recurrent, unspecified
CPT/HCPCS: 29515; 73630; 99214; G0463

== ENCOUNTER 2024-10-24 01:15 | Day surgery (SDC) | payer BC, SELFPAY ==
[2024-10-09 12:59] VITALS: BMI 31.2
[2024-10-24 08:09] VITALS: BP 150/90; PULSE 72; RESP 17; TEMP 36.7; O2SAT 96; BMI 31.6
[2024-10-24] MEDS: LACTATED RINGERS 1,000 ML 150 ML IV CONT (08:15)
--- NOTE | 2024-10-24 08:55 | WPDANESEPPF ---
Anes - Initial Pre Proc Eval Procedure: Operation Date: 10/24/24 09:15 Proposed Procedures p Esophagogastroduodenoscopy - Carlos Garcia MD Date/Time: 10/24/24 08:55 Surgeon: Carlos Garcia MD Pre Op Diagnosis: Gastritis, unspecified, without bleeding Patient Data Age: 69 Gender: M Height: 1.78 m Weight: 100.1 kg Last Vital Signs Temp 36.7 C 10/24/24 08:09 Pulse 72 10/24/24 08:09 Resp 17 10/24/24 08:09 BP 150/90 H 10/24/24 08:09 Pulse Ox 96 10/24/24 08:09 O2 Del Method Room Air 10/24/24 08:09 Allergies Allergy/AdvReac Type Severity Reaction Status Date / Time KARLOS Inhibitors Allergy Severe Hives Verified 10/14/24 07:14 ibuprofen Allergy Severe HIVES Verified 10/14/24 07:14 Home Medications ?Medication ?Instructions ?Recorded ?Confirmed ?Type cetirizine 5 mg-pseudoephedrine ER 1 tablet PO Q12H PRN Congestion 12/13/18 10/14/24 History 120 mg tablet,extended release,12hr (Zyrtec-D) montelukast 10 mg tablet See Rx Instructions .Route 06/14/22 10/24/24 Rx .COMPLEX PRN Congestion #90 tabs dupilumab 300 mg/2 mL subcutaneous 300 mg subcut WEEKLY 03/17/24 10/14/24 History pen injector (Dupixent) atorvastatin 40 mg tablet 40 mg PO HS #90 tabs 05/07/24 10/24/24 Rx omeprazole 40 mg capsule,delayed See Rx Instructions .Route 06/16/24 10/24/24 Rx release .COMPLEX #100 caps amlodipine 5 mg tablet 5 mg PO DAILY #90 tabs 07/01/24 10/24/24 Rx escitalopram oxalate 20 mg tablet 20 mg PO DAILY #90 tabs 07/01/24 10/24/24 Rx azelastine 137 mcg (0.1 %) nasal 137 mcg (0.137 mL) intranasal Q12H 09/24/24 10/24/24 Rx spray #30 mL zolpidem 10 mg tablet 10 mg PO HS #30 tabs 09/26/24 10/24/24 Rx diclofenac sodium 75 mg See Rx Instructions .Route 10/01/24 10/24/24 Rx tablet,delayed release .COMPLEX #60 tabs olmesartan 40 mg tablet 40 mg PO DAILY #90 tabs 10/14/24 Rx Patient hx anesthesia problems: none Family hx anesthesia problems: none Results Review: All pre-operative results and documents have been reviewed as part of the pre-operative evaluation. [facility] Past Medical History Medical History Left hip pain Right hip pain Rotator cuff tear, left Hiatal hernia Dysphagia Chronic GERD Essential (primary) hypertension JAIME (generalized anxiety disorder) HLD (hyperlipidemia) Major depressive disorder, recurrent episode, moderate Mild cognitive impairment Surgical History Surgical History History of elbow surgery R distal biceps repair H/O ventral hernia repair Ventral hernia repair on 01/03/22 S/P rotator cuff repair bilateral History of meniscectomy of left knee Ulnar nerve entrapment at elbow Status post carpal tunnel release History of cervical spinal surgery Family History Family History Father Hypertension Family history of cardiovascular disease Mother Hypertension Sibling Family history of cardiovascular disease Family history of malignant neoplasm of breast in first degree relative Social History Social History Social History: Smoking status: Never smoker Second hand tobacco smoke exposure: No Additional smoking assessment comments: DENEIS ALL FORMS OF TOBACCO USE Alcohol intake: current Drinks per week: 2 Substance use: never Substance use type: does not use Lack of Transportation: No Lack of Food: Never True Current Housing: I Have Housing Concerned About Future Housing: No Difficulty Paying Gas/Electric Bills: No Difficulty Paying for Meds: No Currently Unemployed: No Education: Associate Degree Difficulty w/ Childcare or Family Care: No Living arrangements: with family Occupation/Education: occupation Gender identity (if verbalized by the patient): Male Sexual Orientation (if Verbalized by the Patient): Straight or Heterosexual Spiritual care concerns: No Anes - Eval Final PreProcedure Day of Procedure 10/24/24 08:55 Patient weight: obese Heart: regular rate and rhythm Lungs: clear to auscultation Airway: Mallampati scale class 1 Neurological: alert and oriented Last oral intake: >/= 8 hours ASA classification: III Emergent: no Anesthetic plan: proceed Anesthesia type and monitoring: general GIVS and standard monitoring Results Review: All pre-operative results and documents have been reviewed as part of the pre-operative evaluation. Informed Consent: The patient's anesthetic plan and its attendant risks and benefits were discussed with the patient/family/POA. Questions were solicited and answers provided to the satisfaction of the patient/family/POA.
--- NOTE | 2024-10-24 08:59 | PM.HPGS ---
History of Present Illness History of Present Illness Consent: Risks, benefits, and alternatives have been discussed and questions answered. Patient agrees to proceed with procedure. Chief complaint: Gastritis, unspecified, without bleeding Narrative: Devaughn Simmons is a 69 year old male with more gerd recently despite omeprazole Review of Systems Review of Systems: All systems reviewed & are unremarkable except as noted in HPI and below PMFSH Past Medical History Medical History Left hip pain Right hip pain Rotator cuff tear, left Hiatal hernia Dysphagia Chronic GERD Essential (primary) hypertension JAIME (generalized anxiety disorder) HLD (hyperlipidemia) Major depressive disorder, recurrent episode, moderate Mild cognitive impairment Surgical History Surgical History History of elbow surgery R distal biceps repair H/O ventral hernia repair Ventral hernia repair on 01/03/22 S/P rotator cuff repair bilateral History of meniscectomy of left knee Ulnar nerve entrapment at elbow Status post carpal tunnel release History of cervical spinal surgery Family History Family History Father Hypertension Family history of cardiovascular disease Mother Hypertension Sibling Family history of cardiovascular disease Family history of malignant neoplasm of breast in first degree relative Social History Social History Social History: Smoking status: Never smoker Second hand tobacco smoke exposure: No Additional smoking assessment comments: DENEIS ALL FORMS OF TOBACCO USE Alcohol intake: current Drinks per week: 2 Substance use: never Substance use type: does not use Lack of Transportation: No Lack of Food: Never True Current Housing: I Have Housing Concerned About Future Housing: No Difficulty Paying Gas/Electric Bills: No Difficulty Paying for Meds: No Currently Unemployed: No Education: Associate Degree Difficulty w/ Childcare or Family Care: No Living arrangements: with family Occupation/Education: occupation Gender identity (if verbalized by the patient): Male Sexual Orientation (if Verbalized by the Patient): Straight or Heterosexual Spiritual care concerns: No Meds Home Medications and Allergies Home Medications ?Medication ?Instructions ?Recorded ?Confirmed ?Type cetirizine 5 mg-pseudoephedrine ER 1 tablet PO Q12H PRN Congestion 12/13/18 10/14/24 History 120 mg tablet,extended release,12hr (Zyrtec-D) montelukast 10 mg tablet See Rx Instructions .Route 06/14/22 10/24/24 Rx .COMPLEX PRN Congestion #90 tabs dupilumab 300 mg/2 mL subcutaneous 300 mg subcut WEEKLY 03/17/24 10/14/24 History pen injector (Dupixent) atorvastatin 40 mg tablet 40 mg PO HS #90 tabs 05/07/24 10/24/24 Rx omeprazole 40 mg capsule,delayed See Rx Instructions .Route 06/16/24 10/24/24 Rx release .COMPLEX #100 caps amlodipine 5 mg tablet 5 mg PO DAILY #90 tabs 07/01/24 10/24/24 Rx escitalopram oxalate 20 mg tablet 20 mg PO DAILY #90 tabs 07/01/24 10/24/24 Rx azelastine 137 mcg (0.1 %) nasal 137 mcg (0.137 mL) intranasal Q12H 09/24/24 10/24/24 Rx spray #30 mL zolpidem 10 mg tablet 10 mg PO HS #30 tabs 09/26/24 10/24/24 Rx diclofenac sodium 75 mg See Rx Instructions .Route 10/01/24 10/24/24 Rx tablet,delayed release .COMPLEX #60 tabs olmesartan 40 mg tablet 40 mg PO DAILY #90 tabs 10/14/24 Rx Allergies Allergy/AdvReac Type Severity Reaction Status Date / Time KARLOS Inhibitors Allergy Severe Hives Verified 10/14/24 07:14 ibuprofen Allergy Severe HIVES Verified 10/14/24 07:14 Vital Signs Vital Signs - 24 hr 10/24/24 08:09 Temperature 98.0 F Pulse Rate 72 Respiratory Rate 17 Blood Pressure 150/90 H Pulse Oximetry 96 Oxygen Delivery Room Air Exam Const: General: comfortable and no acute distress HENMT: Face/Nose/Sinus: Normal nares present Eyes: General: appearance normal, both eyes and all related structures Neck: Neck: no JVD Resp: Auscultation: clear to auscultation bilaterally Cardio: Rate: regular rate Rhythm: regular rhythm GI: Inspection: non-distended GI Palp: Yes Soft to palpation Skin: General skin exam: normal color Neuro: General: gait normal Speech: normal speech Extrem: General: normal to inspection Psych: Mental Status: mental status grossly normal Assessment and Plan Assessment and plan (1) Chronic GERD: Code(s): K21.9 - Gastro-esophageal reflux disease without esophagitis Status: Acute Assessment and Plan: egd
--- NOTE | 2024-10-24 09:01 | S_PTH ---
PATIENT: Devaughn Simmons LOC: [facility]#:[id number] AGE/SX: 69/M ROOM: RE10/24/[address]: Carlos Garcia MD : 1955 BED: DIS: 10/24/2024 SPEC #: [id number] RECD: 10/24/24 10:53 STATUS: ELVIRA REQ #: [id number] NE: 10/24/24 09:[address]: Carlos Garcia DEPT: [facility] Surgical RECD BY: Kalie Ye ENTERED: 10/24/24 10:54 SP TYPE: Surgical OTHR DR: Tonio Abad MD Tissues: A - Esophageal Biopsy B - Gastric Biopsy Procedures: Hematoxylin and Eosin Stain Gross and Microscopic Level 4
[2024-10-24 09:05] VITALS: BP 152/91; PULSE 74; RESP 17; O2SAT 95
[2024-10-24 09:15] VITALS: BP 131/90; PULSE 66; RESP 21; O2SAT 95
[2024-10-24 09:25] VITALS: BP 121/88; PULSE 71; RESP 18; O2SAT 96
== END 2024-10-24 09:35 | disposition home or self-care (01) ==
PROVIDERS: PCP Family Medicine; Referring Provider Physician Assistant; Visit Provider Internal Medicine Gastroenterology
PROC: 0DJ08ZZ Inspection of Upper Intestinal Tract, Via Natural or Artificial Opening Endoscopic (ICD-10-PCS; CPT 43239; principal; 2024-10-24 09:15)
DX: K21.9 Gastro-esophageal reflux disease without esophagitis (principal); K44.9 Diaphragmatic hernia without obstruction or gangrene; E78.5 Hyperlipidemia, unspecified; I10 Essential (primary) hypertension; F41.9 Anxiety disorder, unspecified; F33.1 Major depressive disorder, recurrent, moderate; G31.84 Mild cognitive impairment of uncertain or unknown etiology; E66.9 Obesity, unspecified; Z68.31 Body mass index [BMI] 31.0-31.9, adult; Z79.85 Long-term (current) use of injectable non-insulin antidiabetic drugs; Z98.890 Other specified postprocedural states; Z98.1 Arthrodesis status; Z80.3 Family history of malignant neoplasm of breast; Z82.49 Family history of ischemic heart disease and other diseases of the circulatory system
CPT/HCPCS: 43239; 43450; 88305; J2704; J7120